=== PATIENT | female | born 1955 | race Caucasian/White ===

== ENCOUNTER → 2018-09-01 | Outpatient (CLI) | payer MEDICARE ==
--- NOTE | 2018-09-01 15:25 | NM ---
EXAMINATION TYPE: NM bone scan whole body DATE OF EXAM: 09/01/2018 COMPARISON: Lumbar spine radiographs dated 08/30/2018 HISTORY: Back pain Delayed whole-body scanning was performed following the injection of 23.8 mCi Tc 99m MDP. Images acq uired 3 hours post injection. FINDINGS: There is focal abnormal radiotracer uptake within the L1-L4 vertebral bodies. On the radiographs of compression deformities of the L1-L3 vertebral bodies. There is also abnormal radiotracer up take within the left eighth rib posteriorly, near the left 12th rib posteriorly, and within the 10th right rib laterally. Degenerative uptake is seen symmetrically within the shoulders, sacroiliac joint s, hips, knees, ankles and elbows. Scoliosis is noted. IMPRESSION: 1. Abnormal radiotracer uptake is seen from L1 through L4. L1-L3 compression deformities were seen on the radiographs of 08/30/2018 and acute compression deformities likely account for this finding. MRI could evaluate for osteopenic versus pathologic compression deformities. 2. Abnormal radiotracer uptake within the ribs bilaterally should be further evaluated. Rib series co uld initially be performed with chest CT if no corresponding lesions or fractures are seen.
== END ==
LOC: RADNMMAIN 11:08
PROVIDERS: ATTEND Physical Medicine & Rehabilitation
DX: R93.89 Abnormal findings on diagnostic imaging of other specified body structures (principal)
CPT/HCPCS: 78306; A9503

== ENCOUNTER 2019-05-12 17:49 | Inpatient (IN) | payer MEDICARE ==
[2019-05-12] MEDS ORDERED: VANCOMYCIN IV PER PHARMACY 1 EACH MISC MISCELLANE PRN (22:53)
[2019-05-12] MEDS ORDERED: VANCOMYCIN 1,000 MG in SODIUM CHLORIDE 0.9% 250 ML IVPB STA (22:56)
[2019-05-12] MEDS: SODIUM CHLORIDE 0.9% 1,000 ML IV SCH (23:31)
[2019-05-12] MEDS: HYDROmorphone 1 MG/ML 1 ML SYRINGE IVP PRN (23:34)
[2019-05-13 00:14] LABS: Calcium 8.3 mg/dL (8.4-10.2)
[2019-05-13] MEDS: traZODone HCL 100 MG TAB PO SCH ×2 (00:18→21:36)
[2019-05-13] MEDS: PANTOPRAZOLE 40 MG/10 ML VIAL IVP SCH ×2 (00:18→07:05)
[2019-05-13] MEDS: HYDROmorphone 1 MG/ML 1 ML SYRINGE IVP PRN ×4 (04:23→15:19)
[2019-05-13] MEDS: KETOROLAC 30 MG/ML 1 ML VIAL IVP PRN ×2 (06:25→20:13)
[2019-05-13 06:57] LABS: Calcium 8.2 mg/dL (8.4-10.2); Total Bilirubin 0.5 mg/dL (0.2-1.3); Total Protein 5.6 g/dL (6.3-8.2)
[2019-05-13] MEDS ORDERED: HYDROcodone/APAP 5-325MG 1 EACH TAB PO PRN (11:28)
[2019-05-13] MEDS ORDERED: NALOXONE 0.4 MG/ML 10 ML VIAL IVP PRN (11:29)
[2019-05-13 11:36] LABS: HCT 33.8 % (34.0-46.0); HGB 10.5 gm/dL (11.4-16.0); Hypochromasia Marked; MCH 29.7 pg (25.0-35.0); MCHC 31.1 g/dL (31.0-37.0); MCV 95.7 fL (80.0-100.0); Mean Platelet Volume 7.3; Platelet Count 183 k/uL (150-450); RBC 3.53 m/uL (3.80-5.40); RDW 15.5 % (11.5-15.5)
[2019-05-13] MEDS ORDERED: NALOXONE 0.4 MG/ML 1 ML VIAL IV PRN (11:36)
[2019-05-13] MEDS: HYDROcodone/APAP 5-325MG 1 EACH TAB PO PRN ×2 (11:58→17:35)
--- NOTE | 2019-05-13 11:58 | P.CNOR ---
History of Present Illness - [facility] Consult date: 05/13/19 Consult reason: other (Cellulitis right hand) History of present illness: Patient is a pleasant 63-year-old female seen at bedside this morning consultation for right hand pain and cellulitis. She states she had hand surgery 30 years ago approximately relating to her juvenile rheumatoid arthritis. She states that approximately a week ago she noticed piece of hardware sticking out of her right hand. She states she continued washing dishes and did not seek care until yesterday due to the inability to get tra nsportation. 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 She states she's had progressive pain at the dorsum of the right hand. She is transferred from [facility] where she presented yesterday. X- rays were done there but they're not available to me today. She has been on IV vancomycin. She is currently denying fever or chills. She denies numbness or tingling. She has no other complaints. Review of Systems All systems: negative Constitutional: Denies chills, Denies fever Eyes: denies blurred vision, denies pain Ears, nose, mouth and throat: Denies headache, Denies sore throat Cardiovascular: Denies chest pain, Denies shortness of breath Respiratory: Denies cough Gastrointestinal: Denies abdominal pain, Denies diarrhea, Denies nausea, Denies vomiting Genitourinary: Denies dysuria, Denies hematuria Musculoskeletal: Denies myalgias Integumentary: Denies pruritus, Denies rash Neurological: Denies numbness, Denies weakness Psychiatric: Denies anxiety, Denies depression Endocrine: Denies fatigue, Denies weight change Past Medical History Past Medical History: Rheumatoid Arthritis (RA) Additional Past Medical History / Comment(s): blind, juvenile RA History of Any Multi-Drug Resistant Organisms: None Reported Additional Past Surgical History / Comment(s): mulitple joint surgeries, eye surgery Past Anesthesia/Blood Transfusion Reactions: No Reported Reaction Past Psychological History: Anxiety, Depression Smoking Status: Former smoker Past Drug Use History: Marijuana - Past Family History Father Family Medical History: Myocardial Infarction ([place]) Additional Family Medical History / Comment(s): ETOH Mother Family Medical History: No Reported History Medications and Allergies Home Medications Medication Instructions Recorded Confirmed Type Clopidogrel [Plavix] 75 mg PO DAILY 05/12/19 05/12/19 History Estradiol [Estrace] 1 mg PO DAILY 05/12/19 05/12/19 History HYDROcodone/APAP 10-325MG [[place] 1 tab PO BID 05/12/19 05/12/19 History 10-325] Omeprazole [PriLOSEC] 20 mg PO AC-BID 05/12/19 05/12/19 History Potassium Chloride [Klor-Con 10] 10 meq PO DAILY 05/12/19 05/12/19 History Sodium Chloride 5% Ophth Oint 1 applic BOTH EYES HS 05/12/19 05/12/19 History [Carlos 128] fentaNYL 100MCG/HR PATCH 1 patch TRANSDERM Q72H 05/12/19 05/12/19 History [Duragesic 100MCG/HR] predniSONE 17.5 mg PO DAILY 05/12/19 05/12/19 History traZODone HCL 100 mg PO DAILY 05/12/19 05/12/19 History traZODone HCL [Desyrel] 200 mg PO HS 05/12/19 05/12/19 History Allergies Allergy/AdvReac Type Severity Reaction Status Date / Time ibuprofen AdvReac Nausea & Verified 05/12/19 21:55 Vomiting Physical Examination Inspection of the right hand shows changes consistent with chronic rheumatoid arthritis. There is swelling about the dorsum of the right hand including cellulitis. There is no obvious fluid pocket or drainage. There is no bleeding. Dorsal aspect of the hand is mildly warm to touch. There is diffuse edema. it is tender to palpation throughout the dorsum of the right hand. No proximal streaking. Motor and sensation is grossly intact throughout the right hand and upper extremity. 2+ radial pulses present. No pain with passive range of motion of the right elbow. Results - Labs Labs: Abnormal Lab Results - Last 24 Hours (Table) 05/12/19 05/13/19 05/13/19 Range/Units 23:37 06:17 10:56 RBC 3.53 L (3.80-5.40) m/uL Hgb 10.5 L (11.4-16.0) gm/dL Hct 33.8 L (34.0-46.0) % Chloride 109 H (98-107) mmol/L BUN 26 H 21 H (7-17) mg/dL Glucose 179 H (74-99) mg/dL Calcium 8.3 L 8.2 L (8.4-10.2) mg/dL Total Protein 5.6 L (6.3-8.2) g/dL Albumin 3.0 L (3.5-5.0) g/dL H & H 05/13/19 Range/Units 10:56 Hgb 10.5 L (11.4-16.0) gm/dL Hct 33.8 L (34.0-46.0) % Result Diagrams: 05/13/19 10:56 05/13/19 06:17 Assessment and Plan (1) Cellulitis of right hand Narrative/Plan: We will order new x-rays of the right hand to further assess the hardware in place and the position of it, as well as for fractures and further signs of infection. Recommended continued elevation along with twice a day warm soapy soaks.we will continue to monitor and make further recommendations pending her findings with her x-rays and her clinical course. Continue IV antibiotics and medical management per primary team. Current Visit: Yes Status: Acute Priority: Medium Code(s): L03.113 - CELLULITIS OF RIGHT UPPER LIMB SNOMED Code(s): 56346591 Time with Patient: Less than 30
--- NOTE | 2019-05-13 11:59 | XR ---
EXAMINATION TYPE: XR hand complete RT , 3 VIEWS DATE OF EXAM ORDERED: 05/13/2019 HISTORY: cellulitis, s/p hand surgery, Hx of JRA. COMPARISON: None. FINDINGS: The hand is grossly deformed with flexion contractures at all digits. There is been a prev ious K wire pinning of the thumb. There is diffuse osteopenia. There is evidence of partial fusion ab out the wrist. IMPRESSION: 1. DEFORMED HAND. 2. POSTSURGICAL CHANGE. 3. THE BONES ARE OVERLAPPED TO SUCH EXTENT THAT IT WOULD BE IMPOSSIBLE TO EXCLUDE OSTEOMYELITIS.
[2019-05-13] MEDS: VANCOMYCIN 750 MG in SODIUM CHLORIDE 0.9% 250 ML IVPB SCH ×2 (12:01→23:59)
[2019-05-13] MEDS: SODIUM CHLORIDE 0.9% 1,000 ML IV SCH ×2 (12:06→23:59)
--- NOTE | 2019-05-13 17:51 | CONS ---
CONSULTATION DATE OF SERVICE: 05/13/2019. REASON FOR CONSULTATION: Right hand cellulitis and abscess. HISTORY OF PRESENT ILLNESS: The patient is a 63 -year-old female, who apparently did develop pain, swelling, redness to her right hand dorsum area while she was initially noticed about a week ago when she noticed that when she was doing her dishes, the patient noticed a hardware sticking out of her hand with a previous history of fusion surgery. The hardware was subsequently removed. The patient started having more swelling and redness and pain for which the patient was initially admitted at [facility] yesterday. I did evaluate the patient at that point. She was having pain almost 10/10 in severity, associated with swelling, redness and purulent drainage with need for hand surgeon. The patient has been transferred to [facility] to be evaluated by hand surgery and I and D. Infectious Disease was consulted. Consulted for continuous followup for antibiotic therapy. As of today, the patient is afebrile. The patient's pain and swelling to the right hand have decreased intensity compared to yesterday with intensity almost about 2 to 3/10 compared to 10/10 initially. No further drainage. Swelling and redness has improved as well. Denies any chest pain, shortness of breath or cough. No nausea, vomiting, abdominal pain, no diarrhea. REVIEW OF SYSTEMS: Positive points mentioned in HPI. Other review of systems negative. PAST MEDICAL HISTORY: Past medical and surgical history reviewed; no change. SOCIAL HISTORY: Reviewed and no change from yesterday. ALLERGIES: TO IBUPROFEN. MEDICATIONS: Include the patient is currently on: [place], Duragesic patch, heparin, Dilaudid, Toradol, vancomycin pharmacy to dose currently getting 750 q.12 hours. PHYSICAL EXAMINATION: Blood pressure is 129/83 with a pulse of 81, temperature 98. She is 95% on room air. General description is a middle-aged female lying in bed in no distress. No tachypnea or accessory muscle for respiration use. HEENT: Examination shows no pallor or scleral icterus. Oral mucosa is moist with no significant erythema or thrush. NECK: Trachea central. No thyromegaly. LUNGS unlabored breathing. Clear to auscultation anteriorly. No wheeze or crackles. HEART S1, S2. Regular rate and rhythm. ABDOMEN: Soft, no tenderness. Right hand swelling and redness has decreased. No further drainage was noticed and no diarrhea. Neurologically the patient is awake, alert, and oriented times three. Mood and affect normal. LABS: Hemoglobin is 10.5, white count 5.0, BUN of 92, creatinine 0.9. Cultures done at [facility] were reviewed, so far pending. Blood culture has been negative. DIAGNOSTIC IMPRESSION AND PLAN: Patient with right hand abscess, cellulitis with the infected hardware, part if ut that has fallen off with the x-ray did show extensive changes, but no evidence of any abscess, likely concern for underlying osteomyelitis, likely from a gram-positive skin lacy. In view of overall improvement of cellulitis with vancomycin. PLAN: 1. Vancomycin pharmacy to dose target of 15, while watching clinical course closely, and vancomycin trough closely. 2. Await surgical exploration and removal of infected hardware. 3. We will follow up on clinical condition and culture to further adjust medication if needed. The patient likely will need PICC line for IV antibiotic on discharge. This will be discussed further with the case work aide. Family at the bedside. Their questions and concerns were answered. MMODL / IJN: [id number] /
[2019-05-13] MEDS: HEPARIN SODIUM,PORCINE 5,000 UNIT/ML 1 ML VIAL SQ SCH (21:36)
[2019-05-13] MEDS ORDERED: VANCOMYCIN 750 MG in SODIUM CHLORIDE 0.9% 250 ML IVPB SCH (23:00)
--- NOTE | 2019-05-14 00:47 | P.HPIM ---
History of Present Illness H&P Date: 05/13/19 Chief Complaint: rt Wrist Swelling and pain Meg Sidhu a 63 y.o.femaleWith a known history of juvenile rheumatoid arthritis, legally blind,COPD and other medical problems presents to ER with complaints of right hand swelling, pain and redness worsening for the past 2-3 days. Patient says that she had injury to the right wrist about 2 days ago while she was washing workup.since that she noticed Pieces of hardware protruding through the right wrist.yesterday she noticed that he started to get loose and fell out of her head. Patient has been having purulent drainage from the wound site. Denied any complaints of fever or chills. No complaints of Chest pain or shortness of breath. Patient is otherwise ambulatory at home. Patient had right wrist surgery about [address] Munson WBC 8.60, hemoglobin 11.4, platelets 209, sodium 145, potassium 4.6, BUN 23 and creatinine 0.9on October 22 0.8 X-ray of the right wrist. NO FRACTURE SEEN. EXTENSIVE CHANGES CONSISTENT WITH CHRONIC RHEUMATOID ARTHRITIS. NO EVIDENCE OF OSTEOMYELITIS. Review of Systems CONSTITUTIONAL:no fever no chills. No loss of appetite. EYES: negative. EARS, NOSE, MOUTH, THROAT and FACE: negative. RESPIRATORY: Negative. CARDIOVASCULAR: Negative. GASTROINTESTINAL: Negative. GENITOURINARY: Negative. INTEGUMENT/BREAST: Negative. HEMATOLOGIC/LYMPHATIC: Negative. MUSCULOSKELETAL:right wrist swelling and redness and pain. NEUROLOGICAL: Negative. BEHAVIORAL/PSYCH: Negative. ENDOCRINE: Negative . Past Medical History Past Medical History: Rheumatoid Arthritis (RA) Additional Past Medical History / Comment(s): blind, juvenile RA History of Any Multi-Drug Resistant Organisms: None Reported Additional Past Surgical History / Comment(s): mulitple joint surgeries, eye surgery Past Anesthesia/Blood Transfusion Reactions: No Reported Reaction Past Psychological History: Anxiety, Depression Smoking Status: Former smoker Past Drug Use History: Marijuana - Past Family History Father Family Medical History: Myocardial Infarction ([place]) Additional Family Medical History / Comment(s): ETOH Mother Family Medical History: No Reported History Medications and Allergies Home Medications Medication Instructions Recorded Confirmed Type Clopidogrel [Plavix] 75 mg PO DAILY 05/12/19 05/12/19 History Estradiol [Estrace] 1 mg PO DAILY 05/12/19 05/12/19 History HYDROcodone/APAP 10-325MG [[place] 1 tab PO BID 05/12/19 05/12/19 History 10-325] Omeprazole [PriLOSEC] 20 mg PO AC-BID 05/12/19 05/12/19 History Potassium Chloride [Klor-Con 10] 10 meq PO DAILY 05/12/19 05/12/19 History Sodium Chloride 5% Ophth Oint 1 applic BOTH EYES HS 05/12/19 05/12/19 History [Carlos 128] fentaNYL 100MCG/HR PATCH 1 patch TRANSDERM Q72H 05/12/19 05/12/19 History [Duragesic 100MCG/HR] predniSONE 17.5 mg PO DAILY 05/12/19 05/12/19 History traZODone HCL 100 mg PO DAILY 05/12/19 05/12/19 History traZODone HCL [Desyrel] 200 mg PO HS 05/12/19 05/12/19 History Allergies Allergy/AdvReac Type Severity Reaction Status Date / Time ibuprofen AdvReac Nausea & Verified 05/12/19 21:55 Vomiting Physical Exam Vitals: Vital Signs Temp Pulse Resp BP Pulse Ox 05/13/19 07:28 99.3 F 75 18 128/78 99 05/13/19 07:00 18 05/13/19 04:00 98.6 F 102 H 16 143/87 93 L 05/12/19 21:58 98.4 F 105 H 16 135/84 94 L Intake and Output 05/12/19 05/13/19 05/13/19 22:59 06:59 14:59 Intake Total 290 Balance 290 Intake: Oral 290 Other: Voiding Method Bedpan # Voids 1 1 Weight 46.7 kg General Appearance: Alert, cooperative, no distress, appears stated age HEENT: PERRL, conjunctiva/corneas clear,legally blind. Neck: Supple, noJVD, no thyromegaly. Chest: Lungs are clear to auscultation bilaterally, respirations unlabored, no tenderness or deformity, Heart: Regular rate and rhythm, S1, S2 normal, no murmur, rub or gallop, pulses are present and symmetric, no S3 of S4. Abdomen: Soft, nontender, bowel sounds active all 4 quadrants, no masses, no o rganomegaly. Extremities:patient does have rheumatoid arthritic changes of bilateral upper and lower extremities., peripheral pulses 2+ bilaterally. right wrist is swollen redness and tender to palpation with purulent drainage from the hardware exit site. Lymph nodes: Cervical, supraclavicular, and axillary nodes normal. Neurologic: Normal, awake and oriented x 3, no focal neuro deficit noted. Psychiatric: Normal with appropriate mood and affect. Skin: Color and texture normal, no rash or lesions. Results CBC & Chem 7: 05/13/19 06:17 Labs: Abnormal Lab Results - Last 24 Hours (Table) 05/12/19 05/13/19 Range/Units 23:37 06:17 Chloride 109 H (98-107) mmol/L BUN 26 H 21 H (7-17) mg/dL Glucose 179 H (74-99) mg/dL Calcium 8.3 L 8.2 L (8.4-10.2) mg/dL Total Protein 5.6 L (6.3-8.2) g/dL Albumin 3.0 L (3.5-5.0) g/dL Thrombosis Risk Factor Assmnt - DVT/VTE Prophylaxis DVT/VTE Prophylaxis: Pharmacologic Prophylaxis ordered - Choose All That Apply Any of the Below Risk Factors Present?: Yes Each Factor Represents 1 point: Obesity (BMI >25) Other Risk Factors: Yes Each Risk Factor Represents 2 Points: Age 61-74 years Other congenital or acquired thrombophilia - If yes, enter type in comment: No Thrombosis Risk Factor Assessment Total Risk Factor Score: 3 Thrombosis Risk Factor Assessment Level: Moderate Risk Assessment and Plan Assessment: Right wrist cellulitis and possible abscess with purulent drainage and also breaking of hardware from previous surgery. Sepsis secondary to above. Patient was tachycardic and febrile. T-max 101.3 Juvenile rheumatoid arthritis with significant arthritic changes hands and feet. Legal blindness COPD not in exacerbation Mild protein calorie malnutrition Normocytic anemia. Rule out iron deficiency and B12 deficiency DVT prophylaxis with heparin subcu PLAN: Patient will be continued on antibiotics in the form of vancomycin. Follow-up wound culture report. Orthopedic surgery and ID was consulted. Patient needs to be seen by hand surgery/plastic surgery for possible incision and drainage. Continue with pain management. Prognosis guarded at this time. Further recommendations based on the clinical course. Time takengreater than 45 minutes. Discussed with the family at bedside in detail. Time with Patient: Greater than 30
[2019-05-14] MEDS: HYDROcodone/APAP 5-325MG 1 EACH TAB PO PRN ×5 (02:49→21:11)
[2019-05-14] MEDS: KETOROLAC 30 MG/ML 1 ML VIAL IVP PRN (04:50)
[2019-05-14] MEDS: SODIUM CHLORIDE 0.9% 1,000 ML IV SCH ×2 (06:15→18:51)
[2019-05-14 07:26] LABS: Basophils % (A) 0 %; Eosinophils # (A) 0.1 k/uL (0-0.7); Eosinophils % (A) 2 %; HCT 32.6 % (34.0-46.0); HGB 10.2 gm/dL (11.4-16.0); Hypochromasia Marked; Lymphocytes # (A) 0.8 k/uL (1.0-4.8); Lymphocytes % (A) 20 %; MCH 29.8 pg (25.0-35.0); MCHC 31.3 g/dL (31.0-37.0); MCV 95.2 fL (80.0-100.0); Mean Platelet Volume 7.5; Monocytes # (A) 0.3 k/uL (0-1.0); Monocytes % (A) 6 %; Neutrophils # (A) 2.8 k/uL (1.3-7.7); Neutrophils % (A) 68 %; Platelet Count 179 k/uL (150-450); RBC 3.42 m/uL (3.80-5.40); RDW 15.7 % (11.5-15.5); WBC 4.1 k/uL (3.8-10.6)
[2019-05-14 07:35] LABS: African American GFR (CKD) >90 (>60 ml/min/1.73 sqM); Anion Gap 3 mmol/L; Blood Urea Nitrogen 14 mg/dL (7-17); Calcium 7.6 mg/dL (8.4-10.2); Carbon Dioxide 27 mmol/L (22-30); Chloride 112 mmol/L (98-107); Glucose 74 mg/dL (74-99); Non-African American GFR(CKD) 89 (>60 ml/min/1.73 sqM); Potassium 4.1 mmol/L (3.5-5.1); Sodium 142 mmol/L (137-145)
[2019-05-14] MEDS: PANTOPRAZOLE 40 MG/10 ML VIAL IVP SCH (07:59)
[2019-05-14] MEDS: HEPARIN SODIUM,PORCINE 5,000 UNIT/ML 1 ML VIAL SQ SCH ×2 (08:05→19:57)
[2019-05-14] MEDS: VANCOMYCIN 750 MG in SODIUM CHLORIDE 0.9% 250 ML IVPB SCH (12:15)
--- NOTE | 2019-05-14 15:06 | P.PN ---
Subjective Progress Note Date: 05/14/19 Principal diagnosis: Right hand cellulitis Patient is seen at bedside today. We are following for her right hand swelling, cellulitis, infection s/p hand surgery many years ago. She has been on IV antibiotics, elevation and doing soaks. XRays of the hand were ordered as well. She feels it is improved today with the swelling and pain. She has no fever, chills, numbness or tingling. Objective - Vital Signs Vital signs: Vital Signs Temp 97.6 F 05/14/19 07:30 Pulse 79 05/14/19 07:30 Resp 17 05/14/19 07:30 BP 155/86 05/14/19 07:30 Pulse Ox 96 05/14/19 07:30 Intake & Output 05/13/19 05/14/19 05/14/19 18:59 06:59 18:59 Intake Total 540 1400 1200 Output Total 400 Balance 140 1400 1200 Intake: Intake, IV Titration 1250 800 Amount Sodium Chloride 0.9% 1, 1000 800 000 ml @ 100 mls/hr IV . Q10H RENÉ Rx#:[id number] Vancomycin 750 mg In 250 Sodium Chloride 0.9% 250 ml @ 125 mls/hr IVPB Q12H RENÉ Rx#:[id number] Oral 540 150 400 Output: Urine 400 Other: Voiding Method Bedpan Bedpan Diaper Diaper # Voids 1 1 2 # Bowel Movements 1 1 - Exam Inspection of the right hand shows improved erythema and edema at the dorsum of the hand. It is mildly tender. It is not hot to touch. No focal abcess or fluid collection appreciated. No open wounds. NVI. - Constitutional General appearance: Present: no acute distress - Labs CBC & Chem 7: 05/14/19 07:00 05/14/19 07:00 Labs: Abnormal Lab Results - Last 24 Hours (Table) 05/14/19 05/14/19 Range/Units 07:00 07:00 RBC 3.42 L (3.80-5.40) m/uL Hgb 10.2 L (11.4-16.0) gm/dL Hct 32.6 L (34.0-46.0) % RDW 15.7 H (11.5-15.5) % Lymphocytes # 0.8 L (1.0-4.8) k/uL Chloride 112 H (98-107) mmol/L Calcium 7.6 L (8.4-10.2) mg/dL - Imaging and Cardiology XRay of right hand show chronic rheumatoid changes diffusely. There are two pins in the right thumb but no other hardware seen at the hand or elsewhere. The fracture or acute process seen Assessment and Plan (1) Cellulitis of right hand Narrative/Plan: She is improved today clinically overall. Recommended continued elevation along with twice a day warm soapy soaks and IV antibiotocs. We will continue to m onitor and make further recommendations pending her clinical course. Current Visit: Yes Status: Acute Priority: Medium Code(s): L03.113 - CELLULITIS OF RIGHT UPPER LIMB SNOMED Code(s): 53930372 Time with Patient: Less than 30
--- NOTE | 2019-05-14 17:13 | PN ---
PROGRESS NOTE DATE OF SERVICE: 05/14/2019 REASON FOR FOLLOWUP: Right hand abscess, cellulitis and concern for underlying infected hardware. INTERVAL HISTORY: The patient is currently afebrile. The patient has been breathing comfortably. The patient denies having any chest pain or any cough. No nausea. No vomiting. No abdominal pain. Pain and swelling of the right hand has decreased and no drainage. PHYSICAL EXAMINATION: On examination, her blood pressure is 124/80 with a pulse of 79, temperature 98.4. She is 97% on room air. General description is a middle-aged female up in the bed in no distress. RESPIRATORY SYSTEM: Unlabored breathing. Clear to auscultation anteriorly. HEART: S1, S2. Regular rate and rhythm. ABDOMEN: Soft. No tenderness. Right hand swelling and redness slightly decreased. LABS: Hemoglobin is 10.2, white count 4.1 with a BUN of 14, creatinine 0.73. DIAGNOSTIC IMPRESSION AND PLAN: Patient with right hand abscess and cellulitis with concern for underlying infected hardware. Cultures were reviewed at [facility], which grew MSSA. Antibiotic will be switched over to cefazolin 2 grams q.8 hours. Await orthopedic recommendation regarding removal of any infected hardware. Continue with supportive care. MMODL / IJN: [id number] /
[2019-05-14] MEDS: HYDROmorphone 1 MG/ML 1 ML SYRINGE IVP PRN (19:51)
[2019-05-14] MEDS: traZODone HCL 100 MG TAB PO SCH (21:11)
--- NOTE | 2019-05-14 22:25 | P.PN ---
Subjective Progress Note Date: 05/14/19 Principal diagnosis: right wrist cellulitis and broken hardware. Meg Sidhu a 63 y.o.femaleWith a known history of juvenile rheumatoid arthritis, legally blind,COPD and other medical problems presents to ER with complaints of right hand swelling, pain and redness worsening for the past 2-3 days. Patient says that she had injury to the right wrist about 2 days ago w hile she was washing workup.since that she noticed Pieces of hardware protruding through the right wrist.yesterday she noticed that he started to get loose and fell out of her head. Patient has been having purulent drainage from the wound site. Denied any complaints of fever or chills. No complaints of Chest pain or shortness of breath. Patient is otherwise ambulatory at home. Patient had right wrist surgery about [address] Munson WBC 8.60, hemoglobin 11.4, platelets 209, sodium 145, potassium 4.6, BUN 23 and creatinine 0.9on October 22 0.8 X-ray of the right wrist. NO FRACTURE SEEN. EXTENSIVE CHANGES CONSISTENT WITH CHRONIC RHEUMATOID ARTHRITIS. NO EVIDENCE OF OSTEOMYELITIS. 05/14/2019 patient is afebrile. Right wrist swelling and redness i improving. Currently being continued on IV antibiotics in the form ofvancomycin. X-ray of the handshowed over lapped bones. OM cannot be excluded.Still complaining of pain but this improvement in pain compared to admission. ID and orthopedic surgery is following. current medications reviewed Objective - Vital Signs Vital signs: Vital Signs Temp 98.4 F 05/14/19 14:35 Pulse 79 05/14/19 16:00 Resp 18 05/14/19 16:00 BP 124/80 05/14/19 14:35 Pulse Ox 97 05/14/19 14:35 Intake & Output 05/13/19 05/14/19 05/14/19 18:59 06:59 18:59 Intake Total 540 1400 1200 Output Total 400 Balance 140 1400 1200 Intake: Intake, IV Titration 1250 800 Amount Sodium Chloride 0.9% 1, 1000 800 000 ml @ 100 mls/hr IV . Q10H [facility] Rx#:[id number] Vancomycin 750 mg In 250 Sodium Chloride 0.9% 250 ml @ 125 mls/hr IVPB Q12H [facility] Rx#:[id number] Oral 540 150 400 Output: Urine 400 Other: Voiding Method Bedpan Bedpan Diaper Diaper # Voids 1 1 2 # Bowel Movements 1 1 - Exam PHYSICAL EXAMINATION: Patient is lying in the bed comfortably, no acute distress, awake alert and oriented.. HEENT: Normocephalic. Neck is supple. Pupils reactive. Nostrils clear. Oral cavity is moist. Ears reveal no drainage. Neck reveals no JVD, carotid bruits, or thyromegaly. CHEST EXAMINATION: Trachea is central. Symmetrical expansion. Lung garcia clear to auscultation and percussion. CARDIAC: Normal S1, S2 with no gallops. No murmurs ABDOMEN: Soft. Bowel sounds normal. No organomegaly. No abdominal bruits. Extremities: reveal no edema. No clubbing or cyanosis Neurologically awake, alert, oriented x3 with well-coordinated movements. No focal deficits noted Skin: No rash or skin lesions. Psychiatric: Coperative. Nonsuicidal Musculoskeletal: does have significantly deformed joints of the bilateral upper lower extremities due to rheumatoid arthritis right wrist swelling and redness improving. No drainage noted. - Labs CBC & Chem 7: 05/14/19 07:00 05/14/19 07:00 Labs: Abnormal Lab Results - Last 24 Hours (Table) 05/14/19 05/14/19 Range/Units 07:00 07:00 RBC 3.42 L (3.80-5.40) m/uL Hgb 10.2 L (11.4-16.0) gm/dL Hct 32.6 L (34.0-46.0) % RDW 15.7 H (11.5-15.5) % Lymphocytes # 0.8 L (1.0-4.8) k/uL Chloride 112 H (98-107) mmol/L Calcium 7.6 L (8.4-10.2) mg/dL Assessment and Plan Assessment: Right wrist cellulitis and possible abscess with purulent drainage and also breaking of hardware from previous surgery. Sepsis secondary to above. Patient was tachycardic and febrile. T-max 101.3 Juvenile rheumatoid arthritis with significant arthritic changes hands and feet. Legal blindness COPD not in exacerbation Mild protein calorie malnutrition Normocytic anemia. Rule out iron deficiency and B12 deficiency DVT prophylaxis with heparin subcu PLAN: Patient will be continued on antibiotics in the form of vancomycin. Follow-up wound culture report. Orthopedic surgery and ID is following. Continue with pain management. Prognosis guarded at this time. Further recommendations based on the clinical course. Time takengreater than 35 minutes. Discussed with the family at bedside in detail. Time with Patient: Greater than 30
[2019-05-14] MEDS ORDERED: VANCOMYCIN TROUGH DUE 1 EACH MISC MISCELLANE ONE (23:00)
[2019-05-15] MEDS: HYDROmorphone 1 MG/ML 1 ML SYRINGE IVP PRN ×8 (00:50→20:56)
[2019-05-15] MEDS: SODIUM CHLORIDE 0.9% 1,000 ML IV SCH ×3 (00:51→23:45)
[2019-05-15] MEDS: HEPARIN SODIUM,PORCINE 5,000 UNIT/ML 1 ML VIAL SQ SCH ×3 (07:17→21:05)
[2019-05-15] MEDS: PANTOPRAZOLE 40 MG/10 ML VIAL IVP SCH (07:22)
[2019-05-15] MEDS: HYDROcodone/APAP 5-325MG 1 EACH TAB PO PRN (07:23)
[2019-05-15 08:05] LABS: African American GFR (CKD) >90 (>60 ml/min/1.73 sqM); Non-African American GFR(CKD) 79 (>60 ml/min/1.73 sqM)
[2019-05-15] MEDS ORDERED: LIDOCAINE 1%-EPI 1:100,000 20 ML VIAL SQ STA (09:55)
[2019-05-15] MEDS ORDERED: HYDROcodone/APAP 7.5-325MG 1 EACH TAB PO PRN (10:01)
[2019-05-15] MEDS ORDERED: LIDOCAINE 1% INJ 10MG/ML (20 ML MDV) SQ ONE (10:25)
--- NOTE | 2019-05-15 10:52 | P.PN ---
Subjective Progress Note Date: 05/15/19 Principal diagnosis: Right hand cellulitis Patient is seen at bedside today. We are following for her right hand swelling, cellulitis, infection s/p hand surgery many years ago. She has been on IV antibiotics, elevation and doing soaks. XRays showed K wire-type pins in the thumb only. There is no other hardware present in the metacarpals or dorsum of the hand.. She feels it has continued to improve a little with the swelling and pain. She has no fever, chills, numbness or tingling. Objective - Vital Signs Vital signs: Vital Signs Temp 98.7 F 05/15/19 07:20 Pulse 89 05/15/19 07:20 Resp 17 05/15/19 07:20 BP 162/85 05/15/19 08:47 Pulse Ox 97 05/15/19 07:20 Intake & Output 05/14/19 05/15/19 05/15/19 18:59 06:59 18:59 Intake Total 1200 240 Balance 1200 240 Intake: Intake, IV Titration 800 Amount Sodium Chloride 0.9% 1, 800 000 ml @ 100 mls/hr IV . Q10H [facility] Rx#:[id number] Oral 400 240 Other: Voiding Method Bedpan Diaper # Voids 2 1 1 # Bowel Movements 1 - Exam Inspection of the right hand shows improved erythema and edema at the dorsum of the hand. It is mildly tender. It is not hot to touch. A small area of what appears to be a collection of possible fluid or abscess is more evident today at the area of the dorsum of the hand at the third metacarpal head where there is also a healing puncture type wound. It is minimally fluctuant. No other areas of fluid collection or abscess seen. There is no proximal streaking. 2+ radial pulses present and less than 2 second capillary refill is present. Motor and sensation is grossly intact throughout the right upper extremity and hand. She has chronic rheumatoid deformity of the hand and digits. - Constitutional General appearance: Present: no acute distress - Labs CBC & Chem 7: 05/14/19 07:00 05/15/19 07:03 Assessment and Plan (1) Cellulitis of right hand Narrative/Plan: After informed consent was given I performed a small bedside incision and drainage at the dorsum of the right hand.. The dorsal hand near the third metacarpal head was locally anesthetized using 1% plain lidocaine. A small longitudinal incision was made at the small area of collection. Minimal serous type fluid was expressed. There was no gross purulence expressed. There was minimal bleeding. She tolerated procedure well without complication. Patient was then placed in warm soapy water to soak for 15 minutes. She is to repeat twice a day. A light gauze dressing to be applied to the wound daily. She continues to improve clinically overall. She is afebrile and her white blood cell count is normal. Recommended continued elevation along with twice a day warm soapy soaks and IV antibiotocs. We will continue to monitor and make further recommendations pending her clinical course. Current Visit: Yes Status: Acute Priority: Medium Code(s): L03.113 - CELLULITIS OF RIGHT UPPER LIMB SNOMED Code(s): 09534401 Time with Patient: Less than 30
[2019-05-15] MEDS: HYDROcodone/APAP 7.5-325MG 1 EACH TAB PO PRN ×2 (12:58→18:13)
--- NOTE | 2019-05-15 15:59 | PN ---
PROGRESS NOTE DATE OF SERVICE: 05/15/2019 REASON FOR FOLLOWUP: Right hand abscess and cellulitis. INTERVAL HISTORY: The patient is currently afebrile. The patient has been breathing comfortably. Pain to the right hand is currently controlled. The patient has been evaluated by Orthopedics with an attempted I&D of the right hand at the bedside. No significant purulence. The patient denies having any chest pain or cough. No abdominal pain. No diarrhea. PHYSICAL EXAMINATION: Blood pressure is 162/85 with a pulse of 89, temperature 98.7. She is 97% on room air. General description is a middle-aged female up in the bed in no distress. RESPIRATORY SYSTEM: Unlabored breathing. Clear to auscultation anteriorly. HEART: S1, S2. Regular rate and rhythm. ABDOMEN: Soft. No tenderness. Right hand swelling and redness slightly decreased. No drainage. LABS: Creatinine 0.81. Blood culture obtained has been negative so far. DIAGNOSTIC IMPRESSION AND PLAN: Patient with a right hand abscess and concern for infected hardware in this patient with culture positive for MSSA at the [facility]. Blood culture positive as well. Blood culture obtained here is currently pending. Patient to continue with cefazolin 2 grams q.8 hours. Once the blood culture is negative, she will get a PICC line, as she will need at least 4 to 6 weeks of IV cefazolin. Continue with supportive care. MMBLAINEL / MAUREENN: [id number] /
--- NOTE | 2019-05-15 17:37 | P.PN ---
Subjective Progress Note Date: 05/15/19 Principal diagnosis: right wrist cellulitis and broken hardware. Objective - Vital Signs Vital signs: Vital Signs Temp 98.3 F 05/15/19 15:35 Pulse 80 05/15/19 15:35 Resp 16 05/15/19 15:35 BP 153/87 05/15/19 15:35 Pulse Ox 94 L 05/15/19 15:35 Intake & Output 05/14/19 05/15/19 05/15/19 18:59 06:59 18:59 Intake Total 1200 240 Balance 1200 240 Intake: Intake, IV Titration 800 Amount Sodium Chloride 0.9% 1, 800 000 ml @ 100 mls/hr IV . Q10H [facility] Rx#:[id number] Oral 400 240 Other: Voiding Method Bedpan Diaper # Voids 2 1 1 # Bowel Movements 1 1 - Exam HEENT: Normocephalic. Neck is supple. Pupils reactive. Nostrils clear. Oral cavity is moist. Ears reveal no drainage. Neck reveals no JVD, carotid bruits, or thyromegaly. CHEST EXAMINATION: Trachea is central. Symmetrical expansion. Lung garcia clear to auscultation and percussion. CARDIAC: Normal S1, S2 with no gallops. No murmurs ABDOMEN: Soft. Bowel sounds normal. No organomegaly. No abdominal bruits. Extremities: reveal no edema. No clubbing or cyanosis Neurologically awake, alert, oriented x3 with well-coordinated movements. No focal deficits noted Skin: No rash or skin lesions. Psychiatric: Coperative. Nonsu - Labs CBC & Chem 7: 05/14/19 07:00 05/15/19 07:03 Assessment and Plan Assessment: Right wrist cellulitis and possible abscess with purulent drainage and also breaking of hardware from previous surgery. Sepsis secondary to above. Patient was tachycardic and febrile. T-max 101.3 Juvenile rheumatoid arthritis with significant arthritic changes hands and feet. Legal blindness COPD not in exacerbation Mild protein calorie malnutrition Normocytic anemia. Rule out iron deficiency and B12 deficiency DVT prophylaxis with heparin subcu PLAN: Patient will be continued on antibiotics in the form of vancomycin. Follow-up wound culture report. Orthopedic surgery and ID is following. Continue with pain management. Prognosis guarded at this time. Further recommendations based on the clinical course. Time takengreater than 35 minutes. Discussed with the family at bedside in detail.
[2019-05-15] MEDS: traZODone HCL 100 MG TAB PO SCH (20:28)
[2019-05-16] MEDS: HYDROmorphone 1 MG/ML 1 ML SYRINGE IVP PRN ×3 (00:22→05:51)
[2019-05-16] MEDS: HYDROcodone/APAP 7.5-325MG 1 EACH TAB PO PRN ×5 (00:38→21:58)
[2019-05-16 06:59] LABS: Basophils % (A) 0 %; Eosinophils # (A) 0.1 k/uL (0-0.7); Eosinophils % (A) 2 %; HCT 35.5 % (34.0-46.0); HGB 10.9 gm/dL (11.4-16.0); Hypochromasia Moderate; Lymphocytes % (A) 21 %; MCH 28.8 pg (25.0-35.0); MCHC 30.6 g/dL (31.0-37.0); Monocytes # (A) 0.3 k/uL (0-1.0); Monocytes % (A) 6 %; Neutrophils # (A) 3.1 k/uL (1.3-7.7); Neutrophils % (A) 67 %; Platelet Count 179 k/uL (150-450); RBC 3.78 m/uL (3.80-5.40); RDW 15.8 % (11.5-15.5); WBC 4.7 k/uL (3.8-10.6)
[2019-05-16 07:27] LABS: African American GFR (CKD) >90 (>60 ml/min/1.73 sqM); Anion Gap 6 mmol/L; Blood Urea Nitrogen 8 mg/dL (7-17); Calcium 8.4 mg/dL (8.4-10.2); Carbon Dioxide 27 mmol/L (22-30); Chloride 109 mmol/L (98-107); Glucose 90 mg/dL (74-99); Non-African American GFR(CKD) >90 (>60 ml/min/1.73 sqM); Potassium 4.2 mmol/L (3.5-5.1); Sodium 142 mmol/L (137-145)
[2019-05-16] MEDS: HEPARIN SODIUM,PORCINE 5,000 UNIT/ML 1 ML VIAL SQ SCH ×2 (07:59→20:43)
[2019-05-16] MEDS: SODIUM CHLORIDE 0.9% 1,000 ML IV SCH ×2 (07:59→18:54)
[2019-05-16] MEDS: PANTOPRAZOLE 40 MG/10 ML VIAL IVP SCH (07:59)
--- NOTE | 2019-05-16 11:47 | P.PN ---
Subjective Progress Note Date: 05/16/19 Principal diagnosis: Right hand cellulitis 05/16/19: Patient is seen at bedside today. We are following for her right hand swelling, cellulitis, infection s/p hand surgery many years ago. A small bedside I and D was performed at bedside yesterday. She has been on IV antibiotics, elevation and doing soaks. XRays showed K wire-type pins in the thumb only. There is no other hardware present in the metacarpals or dorsum of the hand. She feels it has continued to improve with the swelling and pain. She has no fever, chills, numbness or tingling. Objective - Vital Signs Vital signs: Vital Signs Temp 98.6 F 05/16/19 06:59 Pulse 83 05/16/19 06:59 Resp 16 05/16/19 06:59 BP 163/92 05/16/19 06:59 Pulse Ox 95 05/16/19 06:59 Intake & Output 05/15/19 05/16/19 05/16/19 18:59 06:59 18:59 Other: Voiding Method Bedpan # Voids 1 1 # Bowel Movements 1 - Exam Inspection of the right hand shows continued improvement with erythema and edema at the dorsum of the hand. It is mildly tender. It is not hot to touch. The small incision at dorsum of the hand is without active bleeding or drainage No other areas of fluid collection or abscess seen. There is no proximal streaking. 2+ radial pulses present and less than 2 second capillary refill is present. Motor and sensation is grossly intact throughout the right upper extremity and hand. She has chronic rheumatoid deformity of the hand and digits. - Constitutional General appearance: Present: no acute distress - Labs CBC & Chem 7: 05/16/19 06:29 05/16/19 06:29 Labs: Abnormal Lab Results - Last 24 Hours (Table) 05/16/19 05/16/19 Range/Units 06:29 06:29 RBC 3.78 L (3.80-5.40) m/uL Hgb 10.9 L (11.4-16.0) gm/dL MCHC 30.6 L (31.0-37.0) g/dL RDW 15.8 H (11.5-15.5) % Chloride 109 H (98-107) mmol/L Microbiology - Last 24 Hours (Table) 05/14/19 17:26 Blood Culture - Preliminary Blood No Growth after 24 hours Assessment and Plan (1) Cellulitis of right hand Narrative/Plan: She continues to improve clinically overall daily. She is continues to be afebrile and her white blood cell count is normal. Recommended continued elevation along with twice a day warm soapy soaks and antibiotics per infectious disease. There are no plans for immediate surgical intervention from orthopedic standpoint. Continue wound care. We will sign off at this point and she may f/u in office in one week. Current Visit: Yes Status: Acute Priority: Medium Code(s): L03.113 - CELLULITIS OF RIGHT UPPER LIMB SNOMED Code(s): 72379834 Time with Patient: Less than 30
--- NOTE | 2019-05-16 14:45 | PN ---
PROGRESS NOTE DATE OF SERVICE: 05/16/2019. REASON FOR FOLLOWUP: Right hand abscess and cellulitis. INTERVAL HISTORY: The patient is currently afebrile. Patient is breathing comfortably. Patient denies having any chest pain or any cough. No worsening pain to the right hand and no diarrhea with antibiotic therapy. PHYSICAL EXAMINATION: Blood pressure 163/92 with a pulse of 83, temperature 98.6. She is 95% on room air. General description is a middle-aged female up in the chair in no distress. Respiratory system: Unlabored breathing. Clear to auscultation anteriorly. Heart S1, S2. Regular rate and rhythm. ABDOMEN: Soft, no tenderness. Right hand dorsum swelling and redness has slightly decreased. LABS: Hemoglobin is 10.9, white count of 4.7, creatinine 0.72. Blood culture repeat has been negative so far. DIAGNOSTIC IMPRESSION AND PLAN: Patient with right hand abscess and cellulitis and secondary bacteremia secondary to MSSA with concern for possible underlying hardware infection. The patient is currently covered with 1 cefazolin 2 g q.8 hours. She will get a PICC line tomorrow for continuation of IV in outpatient setting. Discussed with the Ortho with the removal of the hardware may be needed to completely clear this infection. MMODL / IJN: [id number] /
[2019-05-16] MEDS: traZODone HCL 100 MG TAB PO SCH (20:48)
[2019-05-17] MEDS: SODIUM CHLORIDE 0.9% 1,000 ML IV SCH ×2 (02:35→17:08)
[2019-05-17] MEDS: HYDROcodone/APAP 7.5-325MG 1 EACH TAB PO PRN ×4 (04:01→21:06)
[2019-05-17] MEDS ORDERED: ONDANSETRON 4 MG/2 ML VIAL IVP STA (07:44)
[2019-05-17] MEDS ORDERED: ONDANSETRON 4 MG TAB PO STA (08:13)
[2019-05-17 08:41] LABS: Basophils % (A) 0 %; Eosinophils # (A) 0.1 k/uL (0-0.7); Eosinophils % (A) 2 %; HCT 31.4 % (34.0-46.0); HGB 10.3 gm/dL (11.4-16.0); Hypochromasia Moderate; Lymphocytes # (A) 0.9 k/uL (1.0-4.8); Lymphocytes % (A) 13 %; MCH 30.4 pg (25.0-35.0); MCHC 32.9 g/dL (31.0-37.0); MCV 92.3 fL (80.0-100.0); Mean Platelet Volume 6.9; Monocytes # (A) 0.4 k/uL (0-1.0); Monocytes % (A) 6 %; Neutrophils # (A) 5.3 k/uL (1.3-7.7); Neutrophils % (A) 76 %; Platelet Count 179 k/uL (150-450); RDW 15.5 % (11.5-15.5); WBC 6.9 k/uL (3.8-10.6)
[2019-05-17 08:52] LABS: African American GFR (CKD) >90 (>60 ml/min/1.73 sqM); Anion Gap 1 mmol/L; Blood Urea Nitrogen 6 mg/dL (7-17); Calcium 8.6 mg/dL (8.4-10.2); Carbon Dioxide 29 mmol/L (22-30); Chloride 106 mmol/L (98-107); Glucose 83 mg/dL (74-99); Non-African American GFR(CKD) >90 (>60 ml/min/1.73 sqM); Potassium 3.7 mmol/L (3.5-5.1); Sodium 136 mmol/L (137-145)
[2019-05-17] MEDS: HEPARIN SODIUM,PORCINE 5,000 UNIT/ML 1 ML VIAL SQ SCH ×2 (10:05→21:12)
[2019-05-17] MEDS: PANTOPRAZOLE 40 MG/10 ML VIAL IVP SCH (10:06)
[2019-05-17 12:01] LABS: Prothrombin Time 10.9 sec (9.0-12.0)
--- NOTE | 2019-05-17 13:19 | IR ---
PICC LINE PLACEMENT: HISTORY: Infection requiring long-term antibiotic therapy PROCEDURE: Ultrasound and fluoroscopic guidance of PICC line placement. COMPLICATIONS: None ANESTHESIA: 1. 1% Lidocaine locally. FINDINGS/TECHNIQUE: The procedure was explained to the patient. The risks, complications, benefits and alternatives were discussed and any questions were answered. Informed consent was obtained. The patient was placed supine on the fluoroscopic table and prepped and draped in the usual sterile fash ion. Utilizing a 21 gauge needle and sonographic and fluoroscopic guidance, access in the left ceph alic vein was achieved and there is placement of a 0.018 guidewire. The vein is patent. A 4-F sheat h was placed over the guidewire. The guidewire and dilator were removed and a 4-F. PICC line was alexia sarah through the sheath with the tip at the level of the SVC. The sheath was removed, the catheter wa s flushed and sutured into position. The patient was stable throughout the procedure and remained st able upon discharge from the Department of Radiology. The vein puncture was patent under ultrasound. A zuluaga scale image was obtained to document patency of the vein punctured. All elements of the maximal barrier technique were utilized. FLUOROSCOPY TIME: 0.2 minutes and one image submitted IMPRESSION: Successful PICC line placement under ultrasound and fluoroscopic guidance. Note is made that the niki ent's nurse was called to 0. To be a right suprahilar mass noted on fluoroscopy while positioning the catheter.
--- NOTE | 2019-05-17 13:46 | XR ---
EXAMINATION TYPE: XR chest 2V DATE OF EXAM: 05/17/2019 COMPARISON: None HISTORY: 63-year-old female with suspected right lung mass TECHNIQUE: AP and lateral views FINDINGS: Left PICC tip at the mid SVC level. Significant rightward patient rotation ornamenter hand regarding mediastinal contours. Heart appears mildly enlarged. Diffuse interstitial prominence. Small effusion s with bibasilar opacities, right greater than left. Some pleural-based calcification suggested overl kaden the left hemidiaphragm. Deformities of the proximal humeri and both sides probably old fracture deformities. IMPRESSION: 1. Limited, rotated exam. Cardiomegaly. Correlate to exclude mild pulmonary vascular congestion. 2. Small effusions with adjacent atelectasis and/or consolidation, right greater than left. 3. If persistent concern for underlying lung mass, nonemergent follow-up contrast enhanced CT chest c an provide more detailed assessment of the lung parenchyma. 4. Calcified pleural plaque overlying the left hemidiaphragm may reflect prior asbestos exposure.
--- NOTE | 2019-05-17 14:27 | PN ---
PROGRESS NOTE DATE OF SERVICE: 05/17/2019 REASON FOR FOLLOWUP: Right hand MSSA abscess cellulitis and bacteremia. INTERVAL HISTORY: The patient is currently afebrile. The patient is breathing comfortably. The patient denies having any chest pain or any cough. Right hand pain and swelling have slightly decreased. No nausea, no vomiting. No abdominal pain, no diarrhea. PHYSICAL EXAMINATION: Blood pressure is 151/86, pulse of 89, temperature 98.4, she is 95% on room air. General description is a middle-aged female, up in the bed in no distress. RESPIRATORY SYSTEM: Unlabored breathing, clear to auscultation anteriorly. HEART: S1, S2. Regular rate and rhythm. ABDOMEN: Soft, no tenderness. Right hand swelling has improved, no drainage. LABS: Creatinine 0.71, white count of 6 1. DIAGNOSTIC IMPRESSION/PLAN: Patient with right hand abscess, cellulitis with concern for underlying hardware; however, as per discussion with Orthopedics, did not see any hardware in the area of swelling or redness. Patient's follow up blood culture has been negative. She will get a PICC line and antibiotic in the form of cephazolin for 4 weeks with weekly morning with followup in the office in 1 week. Continue supportive care. MMODL / IJN: [id number] /
--- NOTE | 2019-05-17 16:11 | P.PN ---
Subjective Progress Note Date: 05/16/19 Principal diagnosis: right wrist cellulitis and broken hardware. 05/16/2019 Patient is seen and evaluated in room at bedside; denies any complaint of pain; tolerating antibiotic therapy Vital signs remained stable with a temperature of 98.6, pulse 83 and blood pressure of 163/92; SpO2 of 95% on room air Lab review shows a white blood count of 4.7, hemoglobin of 10.9 and creatinine of 0.7 to Patient remains on IV cefazolin 2 g every 8 hours for right hand abscess and cellulitis with secondary bacteremia with MSSA with concern for possible underlying hardware infection; patient is scheduled for a PICC line tomorrow for continuation of IV antibiotic as outpatient; ID is still concerned about need for removal of hardware if infection fails to resolve Objective - Vital Signs Vital signs: Vital Signs Temp 98.6 F 05/16/19 06:59 Pulse 83 05/16/19 06:59 Resp 16 05/16/19 06:59 BP 163/92 05/16/19 06:59 Pulse Ox 95 05/16/19 06:59 Intake & Output 05/15/19 05/16/19 05/16/19 18:59 06:59 18:59 Other: Voiding Method Bedpan # Voids 1 1 # Bowel Movements 1 - Exam HEENT: Normocephalic. Neck is supple. Pupils reactive. Nostrils clear. Oral cavity is moist. Ears reveal no drainage. Neck reveals no JVD, carotid bruits, or thyromegaly. CHEST EXAMINATION: Trachea is central. Symmetrical expansion. Lung garcia clear to auscultation and percussion. CARDIAC: Normal S1, S2 with no gallops. No murmurs ABDOMEN: Soft. Bowel sounds normal. No organomegaly. No abdominal bruits. Extremities: reveal no edema. No clubbing or cyanosis Neurologically awake, alert, oriented x3 with well-coordinated movements. No focal deficits noted Skin: No rash or skin lesions. Psychiatric: Coperative. Nonsu - Labs CBC & Chem 7: 05/17/19 07:48 05/17/19 07:48 Labs: Abnormal Lab Results - Last 24 Hours (Table) 05/16/19 05/16/19 Range/Units 06:29 06:29 RBC 3.78 L (3.80-5.40) m/uL Hgb 10.9 L (11.4-16.0) gm/dL MCHC 30.6 L (31.0-37.0) g/dL RDW 15.8 H (11.5-15.5) % Chloride 109 H (98-107) mmol/L Microbiology - Last 24 Hours (Table) 05/14/19 17:26 Blood Culture - Preliminary Blood No Growth after 24 hours Assessment and Plan Assessment: Right wrist cellulitis and possible abscess with purulent drainage and also breaking of hardware from previous surgery. Sepsis secondary to above. Patient was tachycardic and febrile. T-max 101.3 Juvenile rheumatoid arthritis with significant arthritic changes hands and feet. Legal blindness COPD not in exacerbation Mild protein calorie malnutrition Normocytic anemia. Rule out iron deficiency and B12 deficiency DVT prophylaxis with heparin subcu PLAN: Patient will be continued on antibiotics in the form of vancomycin. Follow-up wound culture report. Orthopedic surgery and ID is following. Continue with pain management. Prognosis guarded at this time. Further recommendations based on the clinical course. Time takengreater than 35 minutes. Discussed with the family at bedside in detail.
--- NOTE | 2019-05-17 18:33 | P.PN ---
Subjective Progress Note Date: 05/17/19 Principal diagnosis: right wrist cellulitis and broken hardware. 05/16/2019 Patient is seen and evaluated in room at bedside; denies any complaint of pain; tolerating antibiotic therapy Vital signs remained stable with a temperature of 98.6, pulse 83 and blood pressure of 163/92; SpO2 of 95% on room air Lab review shows a white blood count of 4.7, hemoglobin of 10.9 and creatinine of 0.7 to Patient remains on IV cefazolin 2 g every 8 hours for right hand abscess and cellulitis with secondary bacteremia with MSSA with concern for possible underlying hardware infection; patient is scheduled for a PICC line tomorrow for continuation of IV antibiotic as outpatient; ID is still concerned about need for removal of hardware if infection fails to resolve 05/17/2019 Patient is seen and evaluated for follow-up; she is status post PICC line placement Vital signs stable with a temperature of 98.4, pulse 89, and blood pressure 1 51/86 with SpO2 of 95% on room air Lab review shows a stable CBC and creatinine of 0.71 Patient with right hand abscess/cellulitis with concern for underlying hardware infection; we'll has evaluated patient and did not see any heart rate in ED of swelling or redness syndrome no surgical intervention is recommended at this time; patient is status post PICC line placement to continue with cefazolin for a total of 4 weeks of therapy with weekly follow-up with ID Incidental finding of right suprahilar mass while patient was undergoing PICC line placement under ultrasound and fluoroscopic guidance; we will order CT of the chest to further evaluate presence of lung mass Objective - Vital Signs Vital signs: Vital Signs Temp 98.4 F 05/17/19 13:13 Pulse 89 05/17/19 13:13 Resp 12 05/17/19 13:00 BP 145/85 05/17/19 13:00 Pulse Ox 95 05/17/19 13:13 Intake & Output 05/16/19 05/17/19 05/17/19 18:59 06:59 18:59 Intake Total 250 Balance 250 Intake: Oral 250 Other: Voiding Method Bedpan # Voids 1 3 2 # Bowel Movements 1 - Exam HEENT: Normocephalic. Neck is supple. Pupils reactive. Nostrils clear. Oral cavity is moist. Ears reveal no drainage. Neck reveals no JVD, carotid bruits, or thyromegaly. CHEST EXAMINATION: Trachea is central. Symmetrical expansion. Lung garcia clear to auscultation and percussion. CARDIAC: Normal S1, S2 with no gallops. No murmurs ABDOMEN: Soft. Bowel sounds normal. No organomegaly. No abdominal bruits. Extremities: reveal no edema. No clubbing or cyanosis Neurologically awake, alert, oriented x3 with well-coordinated movements. No focal deficits noted Skin: No rash or skin lesions. Psychiatric: Coperative. Nonsu - Labs CBC & Chem 7: 05/17/19 07:48 05/17/19 07:48 Labs: Abnormal Lab Results - Last 24 Hours (Table) 05/17/19 05/17/19 Range/Units 07:48 07:48 RBC 3.40 L (3.80-5.40) m/uL Hgb 10.3 L (11.4-16.0) gm/dL Hct 31.4 L (34.0-46.0) % Lymphocytes # 0.9 L (1.0-4.8) k/uL Sodium 136 L (137-145) mmol/L BUN 6 L (7-17) mg/dL Microbiology - Last 24 Hours (Table) 05/14/19 17:26 Blood Culture - Preliminary Blood No Growth after 48 hours Assessment and Plan Assessment: Right wrist cellulitis and possible abscess with purulent drainage and also breaking of hardware from previous surgery. Sepsis secondary to above. Patient was tachycardic and febrile. T-max 101.3 Juvenile rheumatoid arthritis with significant arthritic changes hands and feet. Legal blindness COPD not in exacerbation Mild protein calorie malnutrition Normocytic anemia. Rule out iron deficiency and B12 deficiency DVT prophylaxis with heparin subcu PLAN: Patient will be continued on antibiotics in the form of vancomycin. Follow-up wound culture report. Orthopedic surgery and ID is following. Continue with pain management. Prognosis guarded at this time. Further recommendations based on the clinical course. Time takengreater than 35 minutes. Discussed with the family at bedside in detail. Time with Patient: Greater than 30
--- NOTE | 2019-05-17 20:48 | CT ---
EXAMINATION TYPE: CT chest w con DATE OF EXAM: 05/17/2019 COMPARISON: None HISTORY: RT SUPRAHILIAR MASS, RT HAND CELLULITIS CT DLP: 270.4 mGycm Automated exposure control for dose reduction was used. CONTRAST: Performed with IV Contrast, patient injected with 100 mL of Isovue 300. Heart appears normal. There is large hiatal hernia. There is some mild infiltrate and atelectasis rig ht posterior lung base. There is no definite pleural effusion. There is some calcification of the lef t side diaphragmatic pleura. There is significant atrophy right kidney. Left kidney has normal size. There is no hydronephrosis. There are no hilar masses. Thoracic aorta shows no aneurysm or dissection. Specifically there is no e vidence of a mediastinal mass. Ascending aorta measures 3.3 cm. There is no pericardial effusion. The re are no hilar masses. Pulmonary arteries appear normal. There is osteopenia and compression deformi ty of numerous thoracic and lumbar vertebra with biconcave deformity. IMPRESSION: Mild infiltrate and atelectasis right posterior lung base. Calcified pleural plaque left lung base. N o suspicious pulmonary mass. Small right kidney consistent with atrophy. Moderate hiatal hernia. Numerous thoracic compression fractures suggestive of significant osteomalacia.
[2019-05-17] MEDS: traZODone HCL 100 MG TAB PO SCH (21:07)
[2019-05-18] MEDS: SODIUM CHLORIDE 0.9% 1,000 ML IV SCH ×2 (00:03→08:06)
[2019-05-18] MEDS: HYDROcodone/APAP 7.5-325MG 1 EACH TAB PO PRN ×3 (04:02→12:24)
[2019-05-18 07:40] VITALS: BP 124/74; PULSE 93; RESP 17; TEMP 98.7
[2019-05-18] MEDS: HEPARIN SODIUM,PORCINE 5,000 UNIT/ML 1 ML VIAL SQ SCH (08:03)
[2019-05-18] MEDS ORDERED: PANTOPRAZOLE 40 MG TABLET PO SCH (09:00)
[2019-05-18 11:17] LABS: Basophils % (A) 0 %; Eosinophils # (A) 0.1 k/uL (0-0.7); Eosinophils % (A) 2 %; HCT 32.2 % (34.0-46.0); HGB 9.9 gm/dL (11.4-16.0); Hypochromasia Moderate; Lymphocytes # (A) 0.9 k/uL (1.0-4.8); Lymphocytes % (A) 12 %; MCH 28.7 pg (25.0-35.0); MCHC 30.8 g/dL (31.0-37.0); MCV 93.1 fL (80.0-100.0); Monocytes # (A) 0.4 k/uL (0-1.0); Monocytes % (A) 6 %; Neutrophils # (A) 5.6 k/uL (1.3-7.7); Neutrophils % (A) 78 %; Platelet Count 177 k/uL (150-450); RBC 3.46 m/uL (3.80-5.40); RDW 15.8 % (11.5-15.5); WBC 7.3 k/uL (3.8-10.6)
[2019-05-18 11:45] LABS: Calcium 8.5 mg/dL (8.4-10.2); Potassium 3.9 mmol/L (3.5-5.1)
--- NOTE | 2019-05-18 14:09 | PN ---
PROGRESS NOTE DATE OF SERVICE: 05/18/2019 REASON FOR FOLLOWUP: Right hand cellulitis MSSA with secondary bacteremia. INTERVAL HISTORY: The patient is currently afebrile. Patient has been breathing comfortably. Denies having any chest pain or any cough. No nausea, no vomiting. Some pain to the right heel area, but no worsening. No diarrhea. PHYSICAL EXAMINATION: Blood pressure 124/74 with a pulse of 90, temperature 98.7, she is 98% on room air. General description is a middle-aged female, lying in bed in no distress. RESPIRATORY SYSTEM: Unlabored breathing, clear to auscultation anteriorly. HEART: S1, S2. Regular rate and rhythm. ABDOMEN: Soft, no tenderness. Right hand is currently dressed up, no obvious drainage on the dressing. LABS: Hemoglobin is 9.8, white count of 7.3, BUN of 7, creatinine 0.83. Blood culture has been negative. DIAGNOSTIC IMPRESSION AND PLAN: Patient with right hand abscess, cellulitis with secondary bacteremia with no evidence of any hardware in the field of infection as per Orthopedics. The patient is currently culture positive, she will get a PICC line. Continue with IV antibiotics for at least 4 weeks with close outpatient followup with weekly labs. MMODL / IJN: [id number] /
--- NOTE | 2019-05-18 14:33 | P.DS ---
Providers Date of admission: 05/12/19 20:05 Expected date of discharge: 05/18/19 Attending physician: Osmar Bloom Consults: 05/12/19 22:51 Consult Physician Routine Consulting Provider: [employer] Consult Reason/Comments: cellulitis right hand, right hand pin came out of hand Do you want consulting provider notified?: Already Contacted Consult Physician Routine Consulting Provider: Garry Osullivan Consult Reason/Comments: cellulitis of right hand Do you want consulting provider notified?: Already Contacted Primary care physician: Stated None Hospital Course: 63 y.o.femaleadmitted to the hospital with pain and swelling and redness of right hand dorsum which started about a week prior to coming to the hospital; patient does have history of prior hand surgery and noticed hardware sticking out and which was subsequently removed; patient continued to have swelling redness and pain of the hand and was admitted to the hospital for further evaluation by a hand surgeon; patient was started on IV vancomycin; hence a did not recommend any surgical treatment and was recommended elevation of had been doing soaks; x-ray was repeated which showed a viral-type pain and symptom and no heart rate are present and metacarpals or dorsum of the hand; patient underwent bedside incision and drainage of dorsum of right 10 with minimal serous type fluid expression; no further interventions was recommended; ID saw patient and recommended to continue with IV cefazolin for 4-6 weeks and follow- up with infection diseases clinic in 1 week postdischarge Plan - Discharge Summary Discharge Rx Participant: Yes New Discharge Prescriptions: New ceFAZolin [Kefzol] 2 gm IVP Q8HR #84 vial Continue Omeprazole [PriLOSEC] 20 mg PO AC-BID predniSONE 17.5 mg PO DAILY Sodium Chloride 5% Ophth Oint [Carlos 128] 1 applic BOTH EYES HS Estradiol [Estrace] 1 mg PO DAILY Clopidogrel [Plavix] 75 mg PO DAILY traZODone HCL [Desyrel] 200 mg PO HS Potassium Chloride [Klor-Con 10] 10 meq PO DAILY traZODone HCL 100 mg PO DAILY fentaNYL 100MCG/HR PATCH [Duragesic 100MCG/HR] 1 patch TRANSDERM Q72H #1 patch HYDROcodone/APAP 10-325MG [[place] 10-325] 1 tab PO BID 3 Days #6 tab Discharge Medication List Clopidogrel [Plavix] 75 mg PO DAILY 05/12/19 [History] Estradiol [Estrace] 1 mg PO DAILY 05/12/19 [History] Omeprazole [PriLOSEC] 20 mg PO AC-BID 05/12/19 [History] Potassium Chloride [Klor-Con 10] 10 meq PO DAILY 05/12/19 [History] Sodium Chloride 5% Ophth Oint [Carlos 128] 1 applic BOTH EYES HS 05/12/19 [History] predniSONE 17.5 mg PO DAILY 05/12/19 [History] traZODone HCL 100 mg PO DAILY 05/12/19 [History] traZODone HCL [Desyrel] 200 mg PO HS 05/12/19 [History] ceFAZolin [Kefzol] 2 gm IVP Q8HR #84 vial 05/17/19 [Rx] HYDROcodone/APAP 10-325MG [[place] 10-325] 1 tab PO BID 3 Days #6 tab 05/18/19 [Rx] fentaNYL 100MCG/HR PATCH [Duragesic 100MCG/HR] 1 patch TRANSDERM Q72H #1 patch 05/18/19 [Rx] Follow up Appointment(s)/Referral(s): Conrad Krishnamurthy PAC [PHYSICIAN PICKLER HELPER] - 1 Week Garry Osullivan MD [STAFF PHYSICIAN] - 1 Week Parker Painting MD [STAFF PHYSICIAN] - 1 Week Ambulatory/Diagnostic Orders: Basic Metabolic Panel [LAB.AMB] Location: None Selected C Reactive Protein [LAB.AMB] Location: None Selected Complete Blood Count w/diff [LAB.AMB] Location: None Selected Erythrocyte Sedimentation Rate [LAB.AMB] Location: None Selected Activity/Diet/Wound Care/Special Instructions: Warm soapy soaks twice daily. Light bandage change daily Elevate right hand F/U in office in one week at [facility] Discharge Disposition: TRANSFER TO SNF/ECF
== END 2019-05-18 15:31 | DRG 559 ==
LOC: 4SSUR 20:05
PROVIDERS: ADMIT Internal Medicine; ATTEND Internal Medicine
PROC: 02HV33Z Insertion of Infusion Device into Superior Vena Cava, Percutaneous Approach (ICD-10-PCS; principal; 2019-05-17 11:00)
DX: T84.619A Infection and inflammatory reaction due to internal fixation device of unspecified bone of arm, initial encounter (principal); A41.01 Sepsis due to Methicillin susceptible Staphylococcus aureus; L03.113 Cellulitis of right upper limb; E44.1 Mild protein-calorie malnutrition; T84.418A Breakdown (mechanical) of other internal orthopedic devices, implants and grafts, initial encounter; M08.99 Juvenile arthritis, unspecified, multiple sites; H54.8 Legal blindness, as defined in USA; J44.9 Chronic obstructive pulmonary disease, unspecified; D64.9 Anemia, unspecified; F32.9 Major depressive disorder, single episode, unspecified; F41.9 Anxiety disorder, unspecified; Z68.20 Body mass index [BMI] 20.0-20.9, adult; Z79.02 Long term (current) use of antithrombotics/antiplatelets; Z79.890 Hormone replacement therapy; Z79.891 Long term (current) use of opiate analgesic; Z79.899 Other long term (current) drug therapy; Z87.891 Personal history of nicotine dependence; Z98.1 Arthrodesis status; Z82.49 Family history of ischemic heart disease and other diseases of the circulatory system; Z81.1 Family history of alcohol abuse and dependence
CPT/HCPCS: 36573; 71046; 71260; 80048; 80053; 80202; 82565; 82607; 83605; 85025; 85027; 85610; 87040

== ENCOUNTER 2019-06-05 19:34 | Inpatient (IN) | payer MEDICARE ==
[2019-06-05] MEDS ORDERED: VANCOMYCIN IV PER PHARMACY 1 EACH MISC MISCELLANE PRN (19:45)
--- NOTE | 2019-06-05 19:51 | ED ---
Recheck HPI - General Chief Complaint: Recheck/Abnormal Lab/Rx Stated Complaint: Pic Line Infection Time Seen by Provider: 06/05/19 19:45 Source: EMS Mode of arrival: EMS Limitations: altered mental status - History of Present Illness Initial Comments: This is 63 female here for evaluation accepted in transfer from [facility]. Patient does have PICC line antibiotics currently for treatment of right hand cellulitis cellulase is a. Resolved at this point in right hand the patient still on antibiotics. Patient is made to fevers chills no pain no abdominal pain no shortness breath or cough or congestion no recent travel history or sick contacts no dysuria. Patient was transferred today for evaluation of possible bacteremia secondary to PICC line infection. MD Complaint: abnormal lab (Patient's today for evaluation regarding elevated white count fever possible bacteremia secondary to PICC line infection) -: days(s) Initial Visit For: other (Increasing weakness and fatigue) Returns Today for: Called Because of Abnormal Lab/Test (Patient was sent to ER from outside facility secondary to reevaluation as he was admitted here 2 weeks ago) Symptoms Since Prior Visit: fever Context: other (Patient continues to not feel well increasing weakness) Associated Symptoms: fever, chills Treatments Prior to Arrival: IV/IO (Patient does have PICC line, presumption of PICC line infection currently) - Related Data Home Medications Medication Instructions Recorded Confirmed Clopidogrel [Plavix] 75 mg PO DAILY 05/12/19 05/12/19 Estradiol [Estrace] 1 mg PO DAILY 05/12/19 05/12/19 Omeprazole [PriLOSEC] 20 mg PO AC-BID 05/12/19 05/12/19 Potassium Chloride [Klor-Con 10] 10 meq PO DAILY 05/12/19 05/12/19 Sodium Chloride 5% Ophth Oint 1 applic BOTH EYES HS 05/12/19 05/12/19 [Carlos 128] predniSONE 17.5 mg PO DAILY 05/12/19 05/12/19 traZODone HCL 100 mg PO DAILY 05/12/19 05/12/19 traZODone HCL [Desyrel] 200 mg PO HS 05/12/19 05/12/19 Previous Rx's Medication Instructions Recorded ceFAZolin [Kefzol] 2 gm IVP Q8HR #84 vial 05/17/19 HYDROcodone/APAP 10-325MG [[place] 1 tab PO BID 3 Days #6 tab 05/18/19 10-325] fentaNYL 100MCG/HR PATCH 1 patch TRANSDERM Q72H #1 patch 05/18/19 [Duragesic 100MCG/HR] Allergies Allergy/AdvReac Type Severity Reaction Status Date / Time ibuprofen AdvReac Nausea & Verified 06/05/19 19:45 Vomiting Review of Systems ROS Statement: Those systems with pertinent positive or pertinent negative responses have been documented in the HPI. ROS Other: All systems not noted in ROS Statement are negative. Past Medical History Past Medical History: Rheumatoid Arthritis (RA) Additional Past Medical History / Comment(s): blind, juvenile RA History of Any Multi-Drug Resistant Organisms: None Reported Additional Past Surgical History / Comment(s): mulitple joint surgeries, eye surgery Past Anesthesia/Blood Transfusion Reactions: No Reported Reaction Past Psychological History: Anxiety, Depression Smoking Status: Former smoker Past Drug Use History: Marijuana - Past Family History Father Family Medical History: Myocardial Infarction (SD) Additional Family Medical History / Comment(s): ETOH Mother Family Medical History: No Reported History General Exam Limitations: altered mental status General appearance: alert, in no apparent distress Head exam: Present: atraumatic, normocephalic, normal inspection Eye exam: Present: normal appearance, PERRL, EOMI. Absent: scleral icterus, conjunctival injection, periorbital swelling ENT exam: Present: normal exam, mucous membranes moist Neck exam: Present: normal inspection. Absent: tenderness, meningismus, lymphadenopathy Respiratory exam: Present: normal lung sounds bilaterally. Absent: respiratory distress, wheezes, rales, rhonchi, stridor Cardiovascular Exam: Present: regular rate, normal rhythm, normal heart sounds. Absent: systolic murmur, diastolic murmur, rubs, gallop, clicks GI/Abdominal exam: Present: soft, normal bowel sounds. Absent: distended, tenderness, guarding, rebound, rigid Extremities exam: Present: normal inspection, full ROM, normal capillary refill. Absent: tenderness, pedal edema, joint swelling, calf tenderness Back exam: Present: normal inspection Neurological exam: Present: alert, oriented X3, CN II-XII intact Psychiatric exam: Present: normal affect, normal mood Skin exam: Present: warm, dry, intact, normal color. Absent: rash Course Vital Signs 06/05/19 19:35 Temperature 98.6 F Pulse Rate 100 Respiratory 20 Rate Blood Pressure 157/95 O2 Sat by Pulse 98 Oximetry - Reevaluation(s) Reevaluation #1: 06/05/19 19:53 Medical records reviewed Reevaluation #2: 06/05/19 19:53 Patient has no significant source of infection at prior hospital Reevaluation #3: 06/05/19 19:53 Will have infectious disease consult here in this hospital - Consultations Consultation #1: spoke w Dr Pearl re admission and is agreeable Medical Decision Making - Medical Decision Making 63 female here for evaluation patient has recent treatment for right hand cellulitis PICC line, likely bacteremia secondary to PICC line placement if she has fevers significantly elevated infection primers including a white blood cell count 30, patient be admitted for treatment Disposition Clinical Impression: Bacteremia, Weakness, Fever Disposition: HOME SELF-CARE Condition: Good Is patient prescribed a controlled substance at d/c from ED?: No Referrals: Ju Mcnair MD [Primary Care Provider] - 1-2 days
[2019-06-05] MEDS ORDERED: VANCOMYCIN 750 MG in SODIUM CHLORIDE 0.9% 250 ML IVPB STA (19:53)
[2019-06-05] MEDS: SODIUM CHLORIDE 0.9% 1,000 ML IV SCH (20:29)
[2019-06-05 20:50] LABS: African American GFR (CKD) >90 (>60 ml/min/1.73 sqM); Anion Gap 6 mmol/L; Blood Urea Nitrogen 16 mg/dL (7-17); Calcium 7.2 mg/dL (8.4-10.2); Carbon Dioxide 23 mmol/L (22-30); Chloride 108 mmol/L (98-107); Glucose 83 mg/dL (74-99); Non-African American GFR(CKD) >90 (>60 ml/min/1.73 sqM); Potassium 4.9 mmol/L (3.5-5.1); Sodium 137 mmol/L (137-145)
[2019-06-05 20:57] LABS: Basophils # (A) 0.1 k/uL (0-0.2); Basophils % (A) 0 %; Eosinophils # (A) 0.1 k/uL (0-0.7); Eosinophils % (A) 0 %; HCT 34.6 % (34.0-46.0); HGB 10.5 gm/dL (11.4-16.0); Hypochromasia Marked; Lymphocytes # (A) 0.8 k/uL (1.0-4.8); Lymphocytes % (A) 3 %; MCH 28.4 pg (25.0-35.0); MCHC 30.3 g/dL (31.0-37.0); MCV 93.6 fL (80.0-100.0); Mean Platelet Volume 7.2; Monocytes # (A) 0.6 k/uL (0-1.0); Monocytes % (A) 2 %; Neutrophils # (A) 22.4 k/uL (1.3-7.7); Neutrophils % (A) 93 %; Platelet Count 224 k/uL (150-450); RBC 3.69 m/uL (3.80-5.40); RDW 15.4 % (11.5-15.5); WBC 24.1 k/uL (3.8-10.6)
[2019-06-05] MEDS ORDERED: ACETAMINOPHEN TAB 325 MG TAB PO STA (21:27)
[2019-06-06] MEDS: PIPERACILLIN-TAZOBACTAM 3.375 GM in SODIUM CHLORIDE 0.9% 100 ML IVPB SCH ×2 (00:28→09:02)
[2019-06-06] MEDS: SODIUM CHLORIDE 0.9% 1,000 ML IV SCH ×2 (04:48→12:35)
[2019-06-06] MEDS ORDERED: HYDROcodone/APAP 10-325MG 1 EACH TAB PO ONE (06:07)
[2019-06-06] MEDS: VANCOMYCIN 750 MG in SODIUM CHLORIDE 0.9% 250 ML IVPB SCH ×2 (06:11→22:12)
[2019-06-06] MEDS: PANTOPRAZOLE 40 MG/10 ML VIAL IV SCH (09:02)
[2019-06-06] MEDS: ENOXAPARIN 40 MG/0.4 ML SYRINGE SQ SCH (09:02)
[2019-06-06] MEDS: HYDROcodone/APAP 10-325MG 1 EACH TAB PO PRN ×2 (09:02→17:10)
[2019-06-06] MEDS: CLOPIDOGREL 75 MG TAB PO SCH (09:08)
[2019-06-06] MEDS: ACETAMINOPHEN TAB 500 MG TAB PO SCH ×2 (09:40→17:15)
[2019-06-06] MEDS: ESCITALOPRAM 20 MG TAB PO SCH (09:40)
[2019-06-06 10:02] LABS: Basophils # (A) 0.1 k/uL (0-0.2); Basophils % (A) 1 %; Eosinophils # (A) 0.1 k/uL (0-0.7); Eosinophils % (A) 0 %; HCT 32.8 % (34.0-46.0); HGB 10.1 gm/dL (11.4-16.0); Hypochromasia Marked; Lymphocytes # (A) 0.6 k/uL (1.0-4.8); Lymphocytes % (A) 2 %; MCH 29.4 pg (25.0-35.0); MCHC 30.7 g/dL (31.0-37.0); MCV 95.7 fL (80.0-100.0); Mean Platelet Volume 6.9; Monocytes # (A) 0.6 k/uL (0-1.0); Monocytes % (A) 2 %; Neutrophils # (A) 22.9 k/uL (1.3-7.7); Neutrophils % (A) 94 %; Platelet Count 249 k/uL (150-450); RBC 3.43 m/uL (3.80-5.40); RDW 15.1 % (11.5-15.5); WBC 24.3 k/uL (3.8-10.6)
[2019-06-06 10:21] LABS: African American GFR (CKD) >90 (>60 ml/min/1.73 sqM); Anion Gap 11 mmol/L; Blood Urea Nitrogen 13 mg/dL (7-17); Calcium 7.1 mg/dL (8.4-10.2); Carbon Dioxide 18 mmol/L (22-30); Chloride 107 mmol/L (98-107); Glucose 64 mg/dL (74-99); Non-African American GFR(CKD) >90 (>60 ml/min/1.73 sqM); Potassium 3.7 mmol/L (3.5-5.1); Sodium 136 mmol/L (137-145)
[2019-06-06] MEDS: ONDANSETRON 4 MG/2 ML VIAL IVP PRN (13:24)
--- NOTE | 2019-06-06 14:13 | CT ---
EXAMINATION TYPE: CT abdomen pelvis wo con DATE OF EXAM: 06/06/2019 HISTORY: Generalized abdominal pain, constipation CT DLP: 358.1 mGycm. Automated Exposure Control for Dose Reduction was Utilized. TECHNIQUE: CT scan of the abdomen and pelvis is performed without oral or IV contrast. COMPARISON: NONE FINDINGS: Within the limitations of a non-contrast study, the following observations are made. LUNG BASES: Calcified pleural plaque left lung base. Subacute or chronic right lateral eighth and brittani th rib fractures noted. LIVER/GB: Mild right lateral ascites. PANCREAS: No significant abnormality is seen. SPLEEN: No significant abnormality is seen. ADRENALS: No significant abnormality is seen. KIDNEYS: Asymmetric diminished size and cortical thinning to right kidney. BOWEL: Moderate to large sized hiatal hernia. Suboptimal evaluation of bowel without enteric contrast . There is slight prominence of the duodenal sweep with air-fluid level. Small bowel loops scattered throughout the abdomen and pelvis show areas of prominence and air fluid levels. There is moderate to severe wall thickening involving the transverse colon with extension into the left colon and additio nal area of involvement throughout the entire sigmoid colon into rectum with mild/moderate ill-define d fluid and fat stranding. Right colon shows some prominence without abnormal wall thickening but per haps mild to moderate ill-defined fluid and fat stranding. GENITAL ORGANS: Anteverted uterus. Adjacent scattered pelvic phleboliths. LYMPH NODES: No greater than 1cm abdominal or pelvic lymph nodes are appreciated. OSSEOUS STRUCTURES: Osseous structures are demineralized. Multilevel moderate compression fractures o f L1-L3 levels. Mild compression fracture L5 and T12 level along with T1 level. Moderate narrowing of both hip joints. Underlying distal convex scoliosis centered at L2 level.. OTHER: Mild amount of ascites throughout the abdomen and pelvis is present. IMPRESSION: 1. Fairly long segment at least moderate moderate acute colitis thought present, this may involve or be contiguous from cecum through rectum. No free air well-formed fluid collection/abscess identified. Differential includes pseudomembranous colitis. Correlate clinically. Other infectious inflammatory and/or ischemic etiologies are not excluded.
[2019-06-06] MEDS ORDERED: PIPERACILLIN-TAZOBACTAM 3.375 GM in SODIUM CHLORIDE 0.9% 100 ML IVPB SCH (16:00)
[2019-06-06] MEDS: CHERRY FLAVOR 60 ML BOTTLE PO SCH (17:10)
[2019-06-06] MEDS: VANCOMYCIN ORAL SOLUTION 250 MG/5 ML BOTTLE PO SCH (17:11)
[2019-06-06] MEDS: traZODone HCL 100 MG TAB PO SCH (22:12)
--- NOTE | 2019-06-06 23:57 | P.CONS ---
History of Present Illness - Reason for Consult Consult date: 06/06/19 bacteremia Requesting physician: Gerald Pearl - Chief Complaint Fever and diarrhea x 1 day - History of Present Illness Patient is a 63-year-old female who was recently admitted to this hospital patient did have right hand abscess and cellulitis culture positive for MSSA blood culture was positive for MSSA as well follow blood culture was negative the patient did get a PICC line and was advised a 4-week course of IV cefazolin with concern for possible deep infection, patient was receiving those antibiotics at the [facility] living and the patient was evaluated in the office on Tuesday overall the patient was doing well yesterday morning patient seemed to have a problem with a fever chills generalized not feeling well and the patient did develop significant diarrhea with multiple loose stools which is watery no blood or mucus in the stool patient been complaining of crampy abdominal pain with intensity almost 7-8 out of 10 some nausea but no vomiting patient right hand swelling and redness has resolved there was also concern for possible PICC line infection which has been discontinued patient was started on vancomycin and Zosyn admitted to hospital infectious was consulted for further recommendation for antibiotic therapy patient did have a CT of abdominal pelvis completed which did shows colitis , since admission to the hospital repeated her fever of 101 F did have elevated white count of 24,000 Review of Systems positive point has been mentioned in HPI rest of the systems are negative. Past Medical History Past Medical History: Rheumatoid Arthritis (RA) Additional Past Medical History / Comment(s): blind, juvenile RA History of Any Multi-Drug Resistant Organisms: None Reported Additional Past Surgical History / Comment(s): mulitple joint surgeries, eye surgery Past Anesthesia/Blood Transfusion Reactions: No Reported Reaction Past Psychological History: Anxiety, Depression Smoking Status: Former smoker Past Drug Use History: Marijuana - Past Family History Father Family Medical History: No Reported History Additional Family Medical History / Comment(s): ETOH Mother Family Medical History: No Reported History Medications and Allergies Home Medications Medication Instructions Recorded Confirmed Type Clopidogrel [Plavix] 75 mg PO DAILY 05/12/19 06/05/19 History Estradiol [Estrace] 1 mg PO DAILY 05/12/19 06/05/19 History Potassium Chloride [Klor-Con 10] 10 meq PO DAILY 05/12/19 06/05/19 History Sodium Chloride 5% Ophth Oint 1 applic BOTH EYES HS 05/12/19 06/05/19 History [Carlos 128] predniSONE 17.5 mg PO DAILY 05/12/19 06/05/19 History traZODone HCL 100 mg PO DAILY 05/12/19 06/05/19 History traZODone HCL [Desyrel] 200 mg PO HS 05/12/19 06/05/19 History ceFAZolin [Kefzol] 2 gm IVP Q8HR #84 vial 05/17/19 06/05/19 Rx fentaNYL 100MCG/HR PATCH 1 patch TRANSDERM Q72H #1 patch 05/18/19 06/05/19 Rx [Duragesic 100MCG/HR] Acetaminophen [Tylenol] 650 mg PO Q6H PRN 06/05/19 06/05/19 History Famotidine 20 mg PO HS 06/05/19 06/05/19 History HYDROcodone/APAP 10-325MG [[place] 1 tab PO Q6H PRN 06/05/19 06/05/19 History 10-325] Loperamide [Imodium] 2 mg PO Q2H PRN MDD 4 CAPS/24HRS 06/05/19 06/05/19 History Ondansetron [Zofran] 4 mg PO Q6H PRN 06/05/19 06/05/19 History Phenergan Im Raiza 25mg/Ml 25 mg IM Q8H PRN 06/05/19 History S.boulardii/B.coagulans/Fos 942 mg PO BID 06/05/19 06/05/19 History [Diff-Stat 471 mg Capsule] Allergies Allergy/AdvReac Type Severity Reaction Status Date / Time ibuprofen AdvReac Nausea & Verified 06/05/19 22:00 Vomiting Physical Exam Vitals: Vital Signs Temp Pulse Pulse Resp BP BP Pulse Ox 06/06/19 14:38 99 F 117 H 18 115/76 93 L 06/06/19 07:47 99.9 F H 106 H 16 155/85 92 L 06/06/19 00:07 99.9 F H 100 149/80 91 L 06/06/19 00:00 20 06/05/19 23:49 99.1 F 98 20 163/98 98 06/05/19 22:45 98 F 98 18 143/94 90 L 06/05/19 21:20 101.5 F H 98 18 148/92 98 06/05/19 19:35 98.6 F 100 20 157/95 98 Intake and Output 06/06/19 06/06/19 06/06/19 06:59 14:59 22:59 Intake Total 1390 Balance 1390 Intake: IV 1390 Piperacillin-Tazobactam 3 100 .375 gm In Sodium Chloride 0.9% 100 ml @ 25 mls/hr IVPB Q8HR [facility] Rx# :[id number] Sodium Chloride 0.9% 1, 1040 000 ml @ 130 mls/hr IV . Q7H42M [facility] Rx#:[id number] Vancomycin 750 mg In 250 Sodium Chloride 0.9% 250 ml @ 125 mls/hr IVPB Q16H [facility] Rx#:[id number] Other: Voiding Method Bedside Commode Incontinent Bedpan Diaper # Voids 1 # Bowel Movements 1 Weight 46.72 kg GENERAL DESCRIPTION: Middle-aged male lying in bed, no distress. No tachypnea or accessory muscle of respiration use. HEENT: Shows Pallor , no scleral icterus. Oral mucous membrane is dry. NECK: Trachea central, no thyromegaly. LUNGS: Unlabored breathing. Clear to auscultation anteriorly. No wheeze or crackle. HEART: S1, S2, regular rate and rhythm. ABDOMEN: Soft, mild left-sided tenderness , guarding or rigidity EXTREMITIES: No edema of feet. Right hand previous area of cellulitis and abscess is completely resolved SKIN: No rash, no masses palpable. NEUROLOGICAL: The patient is awake, alert, oriented x3, mood and affect normal. Results CBC & Chem 7: 06/06/19 09:35 06/06/19 09:35 Labs: Abnormal Lab Results - Last 24 Hours (Table) 06/05/19 06/05/19 06/06/19 Range/Units 20:27 20:27 09:35 WBC 24.1 H 24.3 H (3.8-10.6) k/uL RBC 3.69 L 3.43 L (3.80-5.40) m/uL Hgb 10.5 L 10.1 L (11.4-16.0) gm/dL Hct 32.8 L (34.0-46.0) % MCHC 30.3 L 30.7 L (31.0-37.0) g/dL Neutrophils # 22.4 H 22.9 H (1.3-7.7) k/uL Lymphocytes # 0.8 L 0.6 L (1.0-4.8) k/uL Sodium (137-145) mmol/L Chloride 108 H (98-107) mmol/L Carbon Dioxide (22-30) mmol/L Glucose (74-99) mg/dL Calcium 7.2 L (8.4-10.2) mg/dL 06/06/19 Range/Units 09:35 WBC (3.8-10.6) k/uL RBC (3.80-5.40) m/uL Hgb (11.4-16.0) gm/dL Hct (34.0-46.0) % MCHC (31.0-37.0) g/dL Neutrophils # (1.3-7.7) k/uL Lymphocytes # (1.0-4.8) k/uL Sodium 136 L (137-145) mmol/L Chloride (98-107) mmol/L Carbon Dioxide 18 L (22-30) mmol/L Glucose 64 L (74-99) mg/dL Calcium 7.1 L (8.4-10.2) mg/dL Microbiology - Last 24 Hours (Table) 06/05/19 22:13 Catheter Tip Culture - Preliminary Catheter Tip Assessment and Plan Assessment: patient presented to the hospital with sepsis in this patient who did have fever elevated white count tachycardia with significant GI symptom of diarrhea and crampy abdominal pain and CT of abdominal pelvis did shows a long segment of colitis likely infectious colitis with C. difficile to be on the list in this patient currently undergoing treatment for right hand abscess cellulitis and MSSA bacteremia versus PICC line infection, (1) Sepsis Current Visit: Yes Status: Acute Code(s): A41.9 - SEPSIS, UNSPECIFIED ORGANISM SNOMED Code(s): 30124999 (2) Colitis Current Visit: Yes Status: Acute Code(s): K52.9 - NONINFECTIVE GASTROENTERITIS AND COLITIS, UNSPECIFIED SNOMED Code(s): 73360971 Plan: 1-blood cultures obtained stat catheter tip cultures will be followed, 2 we will check a stool for C. difficile- 3-empirically add vancomycin to 50 mg p.o. every 6 hour 4-discontinue Zosyn 5-vancomycin pharmacy to dose her with a target trough of 15 while watching her kidney function and Vanco trough closely. While waiting for blood and catheter tip culture to finalize We will follow on clinical condition and cultures to further adjust medication i f needed Thank you for this consultation we will follow the patient along with you Time with Patient: Greater than 30
[2019-06-07] MEDS: CHERRY FLAVOR 60 ML BOTTLE PO SCH ×4 (00:19→20:36)
[2019-06-07] MEDS: VANCOMYCIN ORAL SOLUTION 250 MG/5 ML BOTTLE PO SCH ×4 (00:19→20:36)
[2019-06-07] MEDS: HYDROcodone/APAP 10-325MG 1 EACH TAB PO PRN ×3 (00:19→14:47)
--- NOTE | 2019-06-07 01:02 | P.HPIM ---
History of Present Illness H&P Date: 06/06/19 Chief Complaint: weakness, pain Patient is a 63-year-old female with PMH of rheumatoid arthritis, depression who was recently admitted for right hand abscess and discharged with PICC and 4-week course of cefazolin. Pt initially did well and had followed with ID on Tuesday with no noted complications. Tuesday pt developed chills, malaise, as well as watery diarrhea. Pt also complaining of cramping severe abdominal pain. In the ED, her vitals were stable, WBC 24k, cr at baseline. With concern for possible PICC infection, her PICC was removed and tip cultured. Patient was started on vancomycin and Zosyn. CT abd/pelvis completed and consistent with colitis. Review of Systems All systems: negative Constitutional: Reports fever, Reports malaise, Reports sweats, Reports weakness, Denies chills Eyes: denies blurred vision, denies pain Ears, nose, mouth and throat: Denies headache, Denies sore throat Cardiovascular: Denies chest pain, Denies shortness of breath Respiratory: Denies cough Gastrointestinal: Reports abdominal pain, Denies diarrhea, Denies nausea, Denies vomiting Genitourinary: Denies dysuria, Denies hematuria Musculoskeletal: Denies myalgias Integumentary: Denies pruritus, Denies rash Neurological: Denies numbness, Denies weakness Psychiatric: Reports anxiety, Reports depression Endocrine: Denies fatigue, Denies weight change Past Medical History Past Medical History: Rheumatoid Arthritis (RA) Additional Past Medical History / Comment(s): blind, juvenile RA History of Any Multi-Drug Resistant Organisms: None Reported Additional Past Surgical History / Comment(s): mulitple joint surgeries, eye surgery Past Anesthesia/Blood Transfusion Reactions: No Reported Reaction Past Psychological History: Anxiety, Depression Smoking Status: Former smoker Past Drug Use History: Marijuana - Past Family History Father Family Medical History: No Reported History Additional Family Medical History / Comment(s): ETOH Mother Family Medical History: No Reported History Medications and Allergies Home Medications Medication Instructions Recorded Confirmed Type Clopidogrel [Plavix] 75 mg PO DAILY 05/12/19 06/05/19 History Estradiol [Estrace] 1 mg PO DAILY 05/12/19 06/05/19 History Potassium Chloride [Klor-Con 10] 10 meq PO DAILY 05/12/19 06/05/19 History Sodium Chloride 5% Ophth Oint 1 applic BOTH EYES HS 05/12/19 06/05/19 History [Carlos 128] predniSONE 17.5 mg PO DAILY 05/12/19 06/05/19 History traZODone HCL 100 mg PO DAILY 05/12/19 06/05/19 History traZODone HCL [Desyrel] 200 mg PO HS 05/12/19 06/05/19 History ceFAZolin [Kefzol] 2 gm IVP Q8HR #84 vial 05/17/19 06/05/19 Rx fentaNYL 100MCG/HR PATCH 1 patch TRANSDERM Q72H #1 patch 05/18/19 06/05/19 Rx [Duragesic 100MCG/HR] Acetaminophen [Tylenol] 650 mg PO Q6H PRN 06/05/19 06/05/19 History Famotidine 20 mg PO HS 06/05/19 06/05/19 History HYDROcodone/APAP 10-325MG [[place] 1 tab PO Q6H PRN 06/05/19 06/05/19 History 10-325] Loperamide [Imodium] 2 mg PO Q2H PRN MDD 4 CAPS/24HRS 06/05/19 06/05/19 History Ondansetron [Zofran] 4 mg PO Q6H PRN 06/05/19 06/05/19 History Phenergan Im Raiza 25mg/Ml 25 mg IM Q8H PRN 06/05/19 History S.boulardii/B.coagulans/Fos 942 mg PO BID 06/05/19 06/05/19 History [Diff-Stat 471 mg Capsule] Allergies Allergy/AdvReac Type Severity Reaction Status Date / Time ibuprofen AdvReac Nausea & Verified 06/05/19 22:00 Vomiting Physical Exam Vitals: Vital Signs Temp Pulse Resp BP Pulse Ox 06/06/19 14:38 99 F 117 H 18 115/76 93 L 06/06/19 07:47 99.9 F H 106 H 16 155/85 92 L Intake and Output 06/06/19 06/06/19 06/07/19 14:59 22:59 06:59 Intake Total 1390 Balance 1390 Intake: IV 1390 Piperacillin-Tazobactam 3 100 .375 gm In Sodium Chloride 0.9% 100 ml @ 25 mls/hr IVPB Q8HR [facility] Rx# :[id number] Sodium Chloride 0.9% 1, 1040 000 ml @ 130 mls/hr IV . Q7H42M [facility] Rx#:[id number] Vancomycin 750 mg In 250 Sodium Chloride 0.9% 250 ml @ 125 mls/hr IVPB Q16H [facility] Rx#:[id number] Other: Voiding Method Incontinent # Voids 1 # Bowel Movements 1 General: well nourished, well developed, in mild distress. Vitals reviewed Eyes: PERRL, EOMI, conjunctiva normal HENT: normocephalic, mucus membranes moist Neck: supple, no JVD Lungs: normal respiratory effort, no wheezes or rales CV: Regular rate and rhythm, no murmur. No edema Abdomen: soft. generalized tenderness. no organomegaly Lymph: no cervical or axillary LAD Skin: warm and dry. Neuro: alert and oriented x3, no focal deficits. Tearful and anxious Results CBC & Chem 7: 06/06/19 09:35 06/06/19 09:35 Labs: Abnormal Lab Results - Last 24 Hours (Table) 06/06/19 06/06/19 Range/Units 09:35 09:35 WBC 24.3 H (3.8-10.6) k/uL RBC 3.43 L (3.80-5.40) m/uL Hgb 10.1 L (11.4-16.0) gm/dL Hct 32.8 L (34.0-46.0) % MCHC 30.7 L (31.0-37.0) g/dL Neutrophils # 22.9 H (1.3-7.7) k/uL Lymphocytes # 0.6 L (1.0-4.8) k/uL Sodium 136 L (137-145) mmol/L Carbon Dioxide 18 L (22-30) mmol/L Glucose 64 L (74-99) mg/dL Calcium 7.1 L (8.4-10.2) mg/dL Microbiology - Last 24 Hours (Table) 06/05/19 22:13 Catheter Tip Culture - Preliminary Catheter Tip Thrombosis Risk Factor Assmnt - Choose All That Apply Any of the Below Risk Factors Present?: Yes Other Risk Factors: Yes Each Risk Factor Represents 2 Points: Age 61-74 years Thrombosis Risk Factor Assessment Total Risk Factor Score: 2 Thrombosis Risk Factor Assessment Level: Low Risk Assessment and Plan (1) Severe sepsis Current Visit: Yes Status: Acute Code(s): A41.9 - SEPSIS, UNSPECIFIED ORGANISM; R65.20 - SEVERE SEPSIS WITHOUT SEPTIC SHOCK SNOMED Code(s): 54074001 (2) Moderate recurrent major depression Current Visit: Yes Status: Acute Code(s): F33.1 - MAJOR DEPRESSIVE DISORDER, RECURRENT, MODERATE SNOMED Code(s): 981171586 (3) Rheumatoid arthritis Current Visit: Yes Status: Acute Code(s): M06.9 - RHEUMATOID ARTHRITIS, UNSPECIFIED SNOMED Code(s): 88209898 (4) Chronic pain Current Visit: Yes Status: Acute Code(s): G89.29 - OTHER CHRONIC PAIN SNOMED Code(s): 71559939 (5) Colitis Current Visit: Yes Status: Acute Code(s): K52.9 - NONINFECTIVE GASTROENTERITIS AND COLITIS, UNSPECIFIED SNOMED Code(s): 66013742 (6) Fever Current Visit: Yes Status: Acute Code(s): R50.9 - FEVER, UNSPECIFIED SNOMED Code(s): 216969256 Plan: 1. Severe sepsis, secondary to colitis vs PICC associated infection. ID consulted. PICC culture with no growth at 24 hrs. Vancomycin per ID 2. Abdominal pain. Suspect secondary to colitis. Treat underlying cause. Surgery consulted for further recs 3. Chronic pain. Continue fentanyl patch. [place] for breakthrough 4. Major depressive disorder. Anxiety. Lexapro
[2019-06-07] MEDS: ACETAMINOPHEN TAB 500 MG TAB PO SCH ×3 (01:34→20:34)
[2019-06-07] MEDS: SODIUM CHLORIDE 0.9% 1,000 ML IV SCH ×4 (05:19→20:35)
[2019-06-07 07:31] LABS: Basophils # (A) 0.1 k/uL (0-0.2); Basophils % (A) 0 %; Eosinophils # (A) 0.1 k/uL (0-0.7); Eosinophils % (A) 1 %; HCT 28.9 % (34.0-46.0); HGB 8.8 gm/dL (11.4-16.0); Hypochromasia Marked; Lymphocytes # (A) 0.9 k/uL (1.0-4.8); Lymphocytes % (A) 5 %; MCH 29.1 pg (25.0-35.0); MCHC 30.5 g/dL (31.0-37.0); MCV 95.3 fL (80.0-100.0); Mean Platelet Volume 7.2; Monocytes # (A) 0.6 k/uL (0-1.0); Monocytes % (A) 4 %; Neutrophils # (A) 16.6 k/uL (1.3-7.7); Neutrophils % (A) 90 %; Platelet Count 195 k/uL (150-450); RBC 3.04 m/uL (3.80-5.40); RDW 15.8 % (11.5-15.5); WBC 18.4 k/uL (3.8-10.6)
[2019-06-07 07:52] LABS: African American GFR (CKD) >90 (>60 ml/min/1.73 sqM); Anion Gap 8 mmol/L; Blood Urea Nitrogen 9 mg/dL (7-17); Calcium 6.7 mg/dL (8.4-10.2); Carbon Dioxide 20 mmol/L (22-30); Chloride 110 mmol/L (98-107); Glucose 75 mg/dL (74-99); Non-African American GFR(CKD) 80 (>60 ml/min/1.73 sqM); Potassium 3.5 mmol/L (3.5-5.1); Sodium 138 mmol/L (137-145)
[2019-06-07] MEDS: ESCITALOPRAM 20 MG TAB PO SCH (09:03)
[2019-06-07] MEDS: CLOPIDOGREL 75 MG TAB PO SCH (09:03)
[2019-06-07] MEDS: ENOXAPARIN 40 MG/0.4 ML SYRINGE SQ SCH (09:04)
[2019-06-07] MEDS: PANTOPRAZOLE 40 MG/10 ML VIAL IV SCH (09:04)
[2019-06-07] MEDS ORDERED: DOCUSATE 100 MG CAP PO SCH (11:15)
[2019-06-07] MEDS: ONDANSETRON 4 MG/2 ML VIAL IVP PRN ×2 (11:50→17:51)
[2019-06-07] MEDS: VANCOMYCIN 750 MG in SODIUM CHLORIDE 0.9% 250 ML IVPB SCH (13:46)
--- NOTE | 2019-06-07 14:15 | P.GSCN ---
History of Present Illness Consult date: 06/07/19 Reason for Consult: abdominal pain Requesting physician: Gerald Pearl History of present illness: CHIEF COMPLAINT: Abdominal pain HISTORY OF PRESENT ILLNESS: 63-year-old female admitted to the hospital secondary to bacteremia. Patient has been complaining of abdominal pain, hence surgery consultation was placed. Patient was examined at the bedside with Dr. Martin. Patient reports generalized abdominal pain. Patient reports having loose stools yesterday. She reports some nausea. Denies emesis. PAST MEDICAL HISTORY: See list. PAST SURGICAL HISTORY: See list. SOCIAL HISTORY: No illicit drug use. REVIEW OF SYSTEMS: CONSTITUTIONAL: Denies fever or chills. HEENT: Denies blurred vision, vision changes, or eye pain. Denies hemoptysis CARDIOVASCULAR: Denies chest pain or pressure. RESPIRATORY: No shortness of breath. GASTROINTESTINAL: Refer to HPI for pertinent findings HEMATOLOGIC: Denies bleeding disorders. GENITOURINARY: Denies any blood in urine. SKIN: Denies pruitis. Denies rash. PHYSICAL EXAM: VITAL SIGNS: Reviewed. GENERAL: Well-developed in no acute distress. HEENT: No sclera icterus. Extraocular movements grossly intact. Moist buccal mucosa. Head is atraumatic, normocephalic. ABDOMEN: Soft. Nondistended. Mild tenderness with palpation. NEUROLOGIC: Alert and oriented. Cranial nerves II through XII grossly intact. LABORATORY DATA: WBC 18.4. Hemoglobin 8.8. Platelet count 195. C. diff negative IMAGING: CT abdomen and pelvis: Fairly long segment of moderate acute colitis from the cecum to the rectum. ASSESSMENT: 1. Abdominal pain 2. Bacteremia 3. Acute colitis PLAN: Clear liquid diet. Bowel rest IV antibiotics per infectious disease Continue supportive management. No surgical intervention recommended at this time Thank you for this consult. We will continue to follow with you. Nurse practitioner note has been reviewed by physician. Signing provider agrees with the documented findings, assessment, and plan of care. Past Medical History Past Medical History: Rheumatoid Arthritis (RA) Additional Past Medical History / Comment(s): blind, juvenile RA History of Any Multi-Drug Resistant Organisms: None Reported Additional Past Surgical History / Comment(s): mulitple joint surgeries, eye surgery Past Anesthesia/Blood Transfusion Reactions: No Reported Reaction Past Psychological History: Anxiety, Depression Smoking Status: Former smoker Past Drug Use History: Marijuana - Past Family History Father Family Medical History: No Reported History Additional Family Medical History / Comment(s): ETOH Mother Family Medical History: No Reported History Medications and Allergies Home Medications Medication Instructions Recorded Confirmed Type Clopidogrel [Plavix] 75 mg PO DAILY 05/12/19 06/05/19 History Estradiol [Estrace] 1 mg PO DAILY 05/12/19 06/05/19 History Potassium Chloride [Klor-Con 10] 10 meq PO DAILY 05/12/19 06/05/19 History Sodium Chloride 5% Ophth Oint 1 applic BOTH EYES HS 05/12/19 06/05/19 History [Carlos 128] predniSONE 17.5 mg PO DAILY 05/12/19 06/05/19 History traZODone HCL 100 mg PO DAILY 05/12/19 06/05/19 History traZODone HCL [Desyrel] 200 mg PO HS 05/12/19 06/05/19 History ceFAZolin [Kefzol] 2 gm IVP Q8HR #84 vial 05/17/19 06/05/19 Rx fentaNYL 100MCG/HR PATCH 1 patch TRANSDERM Q72H #1 patch 05/18/19 06/05/19 Rx [Duragesic 100MCG/HR] Acetaminophen [Tylenol] 650 mg PO Q6H PRN 06/05/19 06/05/19 History Famotidine 20 mg PO HS 06/05/19 06/05/19 History HYDROcodone/APAP 10-325MG [[place] 1 tab PO Q6H PRN 06/05/19 06/05/19 History 10-325] Loperamide [Imodium] 2 mg PO Q2H PRN MDD 4 CAPS/24HRS 06/05/19 06/05/19 History Ondansetron [Zofran] 4 mg PO Q6H PRN 06/05/19 06/05/19 History Phenergan Im Raiza 25mg/Ml 25 mg IM Q8H PRN 06/05/19 History S.boulardii/B.coagulans/Fos 942 mg PO BID 06/05/19 06/05/19 History [Diff-Stat 471 mg Capsule] Allergies Allergy/AdvReac Type Severity Reaction Status Date / Time ibuprofen AdvReac Nausea & Verified 06/05/19 22:00 Vomiting Surgical - Exam Vital Signs Temp Pulse Resp BP Pulse Ox 98.6 F 100 20 157/95 98 06/05/19 19:35 06/05/19 19:35 06/05/19 19:35 06/05/19 19:35 06/05/19 19:35 Results - Labs 06/07/19 06:56 06/07/19 06:56 Abnormal Lab Results - Last 24 Hours (Table) 06/07/19 06/07/19 Range/Units 06:56 06:56 WBC 18.4 H (3.8-10.6) k/uL RBC 3.04 L (3.80-5.40) m/uL Hgb 8.8 L (11.4-16.0) gm/dL Hct 28.9 L (34.0-46.0) % MCHC 30.5 L (31.0-37.0) g/dL RDW 15.8 H (11.5-15.5) % Neutrophils # 16.6 H (1.3-7.7) k/uL Lymphocytes # 0.9 L (1.0-4.8) k/uL Chloride 110 H (98-107) mmol/L Carbon Dioxide 20 L (22-30) mmol/L Calcium 6.7 L (8.4-10.2) mg/dL Microbiology - Last 24 Hours (Table) 06/06/19 11:28 Blood Culture - Preliminary Blood No Growth after 24 hours 06/05/19 22:13 Catheter Tip Culture - Preliminary Catheter Tip Diabetes panel 06/07/19 Range/Units 06:56 Sodium 138 (137-145) mmol/L Potassium 3.5 (3.5-5.1) mmol/L Chloride 110 H (98-107) mmol/L Carbon Dioxide 20 L (22-30) mmol/L BUN 9 (7-17) mg/dL Creatinine 0.80 (0.52-1.04) mg/dL Glucose 75 (74-99) mg/dL Calcium 6.7 L (8.4-10.2) mg/dL Calcium panel 06/07/19 Range/Units 06:56 Calcium 6.7 L (8.4-10.2) mg/dL Pituitary panel 06/07/19 Range/Units 06:56 Sodium 138 (137-145) mmol/L Potassium 3.5 (3.5-5.1) mmol/L Chloride 110 H (98-107) mmol/L Carbon Dioxide 20 L (22-30) mmol/L BUN 9 (7-17) mg/dL Creatinine 0.80 (0.52-1.04) mg/dL Glucose 75 (74-99) mg/dL Calcium 6.7 L (8.4-10.2) mg/dL Adrenal panel 06/07/19 Range/Units 06:56 Sodium 138 (137-145) mmol/L Potassium 3.5 (3.5-5.1) mmol/L Chloride 110 H (98-107) mmol/L Carbon Dioxide 20 L (22-30) mmol/L BUN 9 (7-17) mg/dL Creatinine 0.80 (0.52-1.04) mg/dL Glucose 75 (74-99) mg/dL Calcium 6.7 L (8.4-10.2) mg/dL
--- NOTE | 2019-06-07 14:21 | PN ---
PROGRESS NOTE DATE OF SERVICE: 06/07/2019 REASON FOR FOLLOWUP: Fever and a question of PICC line infection and colitis. INTERVAL HISTORY: The patient did have a fever this morning of 103. The patient overall fever pattern has improved since then. The patient has been breathing comfortably. Patient denies having any chest pain or shortness of breath or cough. Denies any abdominal pain and the patient denies any worsening diarrhea. PHYSICAL EXAMINATION: Blood pressure is 91/54 with a pulse of 106, temperature of 99.9, she is 94% on room air. General description is middle-aged female, lying in bed in no distress. RESPIRATORY SYSTEM: Unlabored breathing, clear to auscultation anteriorly. HEART: S1, S2. Regular rate and rhythm. ABDOMEN: Soft, no tenderness. EXTREMITIES: No edema to the feet. Examination the right hand overall with no swelling, no redness. LABS: Hemoglobin 8.8, white count of 18.4. Stool for C difficile colitis came back negative. Blood culture has been negative. Catheter has been negative so far. DIAGNOSTIC IMPRESSION AND PLAN: Patient admitted to the hospital with a fever with concern for possible PICC infection which has been discontinued. The patient also had significant diarrhea and a CT has been suggestive of colitis. Suspicion is high for Clostridium difficile as the patient has been on antibiotic and a assisted resident. Patient at this point covered with p.o. vancomycin and IV vanc will be continued while waiting for the culture to finalize as the patient has shown some clinical improvement. Will hold on Zosyn or a gram- negative at this point and continue supportive care. MMODL / IJN: [id number] /
[2019-06-07] MEDS: SENNOSIDES-DOCUSATE SODIUM 1 EACH TAB PO SCH ×2 (14:43→20:39)
[2019-06-07] MEDS ORDERED: Potassium Replacement Protocol 1 EACH MISC MISCELLANE PRN (17:31)
--- NOTE | 2019-06-07 17:34 | P.PN ---
Subjective Progress Note Date: 06/07/19 Patient is a 63-year-old female with PMH of rheumatoid arthritis, depression who was recently admitted for right hand abscess and discharged with PICC and 4-week course of cefazolin. Pt initially did well and had followed with ID on Tuesday with no noted complications. Tuesday pt developed chills, malaise, as well as watery diarrhea. Pt also complaining of cramping severe abdominal pain. In the ED, her vitals were stable, WBC 24k, cr at baseline. With concern for possible PICC infection, her PICC was removed and tip cultured. Patient was started on vancomycin and Zosyn. CT abd/pelvis completed and consistent with colitis. 06/07/2019 complaining of constipation, abdominal pain. States difficulty sle eping. Maintained on IV vancomycin, blood cultures reporting no growth at 24 hours, PICC line catheter tip reporting no growth at 24 hours. Stool for C. difficile negative. T-max 103.9, WBC trending down currently 18.4. Evaluated by surgery, recommending clear liquid diet/bowel rest. Denies chest pain, palpitations or increased shortness of breath. Objective - Vital Signs Vital signs: Vital Signs Temp 98.7 F 06/07/19 15:00 Pulse 92 06/07/19 15:00 Resp 16 06/07/19 15:00 BP 102/67 06/07/19 15:00 Pulse Ox 95 06/07/19 15:00 Intake & Output 06/06/19 06/07/19 06/07/19 18:59 06:59 18:59 Intake Total 1390 Balance 1390 Intake: IV 1390 Piperacillin-Tazobactam 3 100 .375 gm In Sodium Chloride 0.9% 100 ml @ 25 mls/hr IVPB Q8HR [facility] Rx# :[id number] Sodium Chloride 0.9% 1, 1040 000 ml @ 130 mls/hr IV . Q7H42M [facility] Rx#:[id number] Vancomycin 750 mg In 250 Sodium Chloride 0.9% 250 ml @ 125 mls/hr IVPB Q16H [facility] Rx#:[id number] Other: Voiding Method Incontinent # Voids 1 1 # Bowel Movements 1 1 - Exam General: well nourished, well developed, in mild distress. Teary-eyed Eyes: PERRL, EOMI, conjunctiva normal HENT: normocephalic, mucus membranes moist Neck: supple, no JVD Lungs: normal respiratory effort, no wheezes or rales CV: Regular rate and rhythm, no murmur. No edema Abdomen: soft. Periumbilical tenderness. no organomegaly Lymph: no cervical or axillary LAD Skin: warm and dry. Neuro: alert and oriented x3, no focal deficits. Tearful and anxious Microbiology 06/06/19 11:28 Blood Blood Culture - Preliminary No Growth after 24 hours 06/05/19 22:13 Catheter Tip Catheter Tip Culture - Preliminary - Labs CBC & Chem 7: 06/07/19 06:56 06/07/19 06:56 Labs: Abnormal Lab Results - Last 24 Hours (Table) 06/07/19 06/07/19 Range/Units 06:56 06:56 WBC 18.4 H (3.8-10.6) k/uL RBC 3.04 L (3.80-5.40) m/uL Hgb 8.8 L (11.4-16.0) gm/dL Hct 28.9 L (34.0-46.0) % MCHC 30.5 L (31.0-37.0) g/dL RDW 15.8 H (11.5-15.5) % Neutrophils # 16.6 H (1.3-7.7) k/uL Lymphocytes # 0.9 L (1.0-4.8) k/uL Chloride 110 H (98-107) mmol/L Carbon Dioxide 20 L (22-30) mmol/L Calcium 6.7 L (8.4-10.2) mg/dL Microbiology - Last 24 Hours (Table) 06/06/19 11:28 Blood Culture - Preliminary Blood No Growth after 24 hours 06/05/19 22:13 Catheter Tip Culture - Preliminary Catheter Tip Assessment and Plan Assessment: (1) Severe sepsis secondary to colitis, possible PICC line associated infection, culture pending. Current Visit: Yes Status: Acute Code(s): A41.9 - SEPSIS, UNSPECIFIED ORGANISM; R65.20 - SEVERE SEPSIS WITHOUT SEPTIC SHOCK SNOMED Code(s): 65315325 (2) Moderate recurrent major depression Current Visit: Yes Status: Acute Code(s): F33.1 - MAJOR DEPRESSIVE DISORDER, RECURRENT, MODERATE SNOMED Code(s): 795826351 (3) Rheumatoid arthritis Current Visit: Yes Status: Acute Code(s): M06.9 - RHEUMATOID ARTHRITIS, UNSPECIFIED SNOMED Code(s): 42766077 (4) Chronic pain Current Visit: Yes Status: Acute Code(s): G89.29 - OTHER CHRONIC PAIN SNOMED Code(s): 37925915 (5) Colitis Current Visit: Yes Status: Acute Code(s): K52.9 - NONINFECTIVE GASTROENTERITIS AND COLITIS, UNSPECIFIED SNOMED Code(s): 83771637 (6) Fever Current Visit: Yes Status: Acute Code(s): R50.9 - FEVER, UNSPECIFIED SNOMED Code(s): 200058179 Plan: Continue on current medication regime ,monitoring and symptomatic treatment. Antidepressant changed to Zoloft, as per patient's request. Colace and Senokot-S added to med regime along with melatonin. No benzos recommended at this time. Maintain IV antibiotics as per infectious disease. PICC line cu lture pending. Evaluated by surgery with recommendations noted and appreciated. The impression and plan of care has been dictated as directed. : I performed a history and examination of this patient, discussed the same with the dictator. I agree with the dictator's note ,documented as a scribe. Any additional findings or plans will be noted.
[2019-06-07] MEDS: CHOLESTYRAMINE (WITH SUGAR) 4 GM PACKET PO SCH (20:38)
[2019-06-07] MEDS: traZODone HCL 100 MG TAB PO SCH (20:39)
[2019-06-07] MEDS: MELATONIN 3 MG TABLET PO SCH (20:39)
[2019-06-07] MEDS: DOCUSATE 100 MG CAP PO SCH (20:39)
[2019-06-08] MEDS: CHERRY FLAVOR 60 ML BOTTLE PO SCH ×4 (00:44→18:27)
[2019-06-08] MEDS: ACETAMINOPHEN TAB 500 MG TAB PO SCH ×3 (00:44→15:50)
[2019-06-08] MEDS: VANCOMYCIN ORAL SOLUTION 250 MG/5 ML BOTTLE PO SCH ×4 (00:44→18:26)
[2019-06-08] MEDS: SODIUM CHLORIDE 0.9% 1,000 ML IV SCH ×4 (00:45→18:27)
[2019-06-08] MEDS ORDERED: VANCOMYCIN TROUGH DUE 1 EACH MISC MISCELLANE ONE (05:00)
[2019-06-08 05:45] LABS: Basophils # (A) 0.1 k/uL (0-0.2); Basophils % (A) 1 %; Eosinophils # (A) 0.2 k/uL (0-0.7); Eosinophils % (A) 2 %; HCT 29.2 % (34.0-46.0); HGB 8.8 gm/dL (11.4-16.0); Hypochromasia Marked; Lymphocytes # (A) 0.9 k/uL (1.0-4.8); Lymphocytes % (A) 9 %; MCHC 30.2 g/dL (31.0-37.0); MCV 96.2 fL (80.0-100.0); Mean Platelet Volume 7.3; Monocytes # (A) 0.3 k/uL (0-1.0); Monocytes % (A) 3 %; Neutrophils # (A) 8.4 k/uL (1.3-7.7); Neutrophils % (A) 84 %; Platelet Count 213 k/uL (150-450); RBC 3.03 m/uL (3.80-5.40); RDW 15.5 % (11.5-15.5)
[2019-06-08 06:05] LABS: African American GFR (CKD) >90 (>60 ml/min/1.73 sqM); Anion Gap 5 mmol/L; Blood Urea Nitrogen 5 mg/dL (7-17); Carbon Dioxide 19 mmol/L (22-30); Chloride 115 mmol/L (98-107); Glucose 86 mg/dL (74-99); Non-African American GFR(CKD) >90 (>60 ml/min/1.73 sqM); Potassium 3.4 mmol/L (3.5-5.1); Sodium 139 mmol/L (137-145)
[2019-06-08] MEDS: DOCUSATE 100 MG CAP PO SCH ×2 (09:20→23:06)
[2019-06-08] MEDS: CLOPIDOGREL 75 MG TAB PO SCH (09:20)
[2019-06-08] MEDS: PANTOPRAZOLE 40 MG/10 ML VIAL IV SCH (09:20)
[2019-06-08] MEDS: SERTRALINE 100 MG TAB PO SCH (09:20)
[2019-06-08] MEDS: SENNOSIDES-DOCUSATE SODIUM 1 EACH TAB PO SCH ×2 (09:20→23:06)
[2019-06-08] MEDS: ENOXAPARIN 40 MG/0.4 ML SYRINGE SQ SCH (09:21)
[2019-06-08] MEDS: CHOLESTYRAMINE (WITH SUGAR) 4 GM PACKET PO SCH (09:21)
--- NOTE | 2019-06-08 10:35 | P.PN ---
Subjective Progress Note Date: 06/08/19 CHIEF COMPLAINT: Abdominal pain HISTORY OF PRESENT ILLNESS: Patient examined this morning at the bedside. She is sitting up in the chair. She reports having a few sips of her clear liquids for breakfast. She reports nausea. She denies any emesis. She denies abdominal pain. She states her belly feels firm. She reports passing flatus and having a bowel movement overnight. WBC 10.0. Hemoglobin 8.8. C. diff negative. PHYSICAL EXAM: VITAL SIGNS: Reviewed. GENERAL: Well-developed in no acute distress. HEENT: No sclera icterus. Extraocular movements grossly intact. Moist buccal mucosa. Head is atraumatic, normocephalic. ABDOMEN: Soft. Mildly distended. Nontender. No signs of peritonitis. NEUROLOGIC: Alert and oriented. Cranial nerves II through XII grossly intact. ASSESSMENT: 1. Abdominal pain 2. Bacteremia 3. Acute colitis PLAN: Continue clear liquid diet. Patient does not want diet advanced at this time. IV antibiotics per infectious disease Continue supportive management. No surgical intervention recommended at this time Nurse practitioner note has been reviewed by physician. Signing provider agrees with the documented findings, assessment, and plan of care. Objective - Vital Signs Vital signs: Vital Signs Temp 98.5 F 06/08/19 07:34 Pulse 99 06/08/19 07:34 Resp 16 06/08/19 07:34 BP 125/80 06/08/19 07:34 Pulse Ox 93 L 06/08/19 07:34 Intake & Output 06/07/19 06/08/19 06/08/19 18:59 06:59 18:59 Intake Total 1610 Balance 1610 Intake: Intake, IV Titration 1560 Amount Vancomycin 750 mg In 1560 Sodium Chloride 0.9% 250 ml @ 125 mls/hr IVPB Q16H [facility] Rx#:[id number] Oral 50 Other: Voiding Method Incontinent # Voids 1 2 # Bowel Movements 1 - Labs CBC & Chem 7: 06/08/19 05:37 06/08/19 05:37 Labs: Abnormal Lab Results - Last 24 Hours (Table) 06/08/19 06/08/19 Range/Units 05:37 05:37 RBC 3.03 L (3.80-5.40) m/uL Hgb 8.8 L (11.4-16.0) gm/dL Hct 29.2 L (34.0-46.0) % MCHC 30.2 L (31.0-37.0) g/dL Neutrophils # 8.4 H (1.3-7.7) k/uL Lymphocytes # 0.9 L (1.0-4.8) k/uL Potassium 3.4 L (3.5-5.1) mmol/L Chloride 115 H (98-107) mmol/L Carbon Dioxide 19 L (22-30) mmol/L BUN 5 L (7-17) mg/dL Calcium 7.0 L (8.4-10.2) mg/dL Microbiology - Last 24 Hours (Table) 06/05/19 22:13 Catheter Tip Culture - Final Catheter Tip 06/06/19 11:28 Blood Culture - Preliminary Blood No Growth after 24 hours
--- NOTE | 2019-06-08 15:47 | P.PN ---
Subjective Progress Note Date: 06/08/19 Patient is a 63-year-old female with PMH of rheumatoid arthritis, depression who was recently admitted for right hand abscess and discharged with PICC and 4-week course of cefazolin. Pt initially did well and had followed with ID on Tuesday with no noted complications. Tuesday pt developed chills, malaise, as well as watery diarrhea. Pt also complaining of cramping severe abdominal pain. In the ED, her vitals were stable, WBC 24k, cr at baseline. With concern for possible PICC infection, her PICC was removed and tip cultured. Patient was started on vancomycin and Zosyn. CT abd/pelvis completed and consistent with colitis. 06/07/2019 complaining of constipation, abdominal pain. States difficulty sle eping. Maintained on IV vancomycin, blood cultures reporting no growth at 24 hours, PICC line catheter tip reporting no growth at 24 hours. Stool for C. difficile negative. T-max 103.9, WBC trending down currently 18.4. Evaluated by surgery, recommending clear liquid diet/bowel rest. Denies chest pain, palpitations or increased shortness of breath. 06/08/2019 depressed, crying, discussing prior multiple emotional traumas. Clinically doing better today, no abdominal pain, up in chair, positive bowel movement last night.. Positive nausea, Denies vomiting. Afebrile, WBC within normal limits. Catheter tip culture reporting no growth. Potassium 3.5. Objective - Vital Signs Vital signs: Vital Signs Temp 98.5 F 06/08/19 07:34 Pulse 99 06/08/19 07:34 Resp 16 06/08/19 07:34 BP 125/80 06/08/19 07:34 Pulse Ox 93 L 06/08/19 07:34 Intake & Output 06/07/19 06/08/19 06/08/19 18:59 06:59 18:59 Intake Total 1610 Balance 1610 Intake: Intake, IV Titration 1560 Amount Vancomycin 750 mg In 1560 Sodium Chloride 0.9% 250 ml @ 125 mls/hr IVPB Q16H [facility] Rx#:[id number] Oral 50 Other: Voiding Method Incontinent Bedside Commode Incontinent # Voids 1 2 # Bowel Movements 1 - Exam General: well nourished, well developed, in mild distress. Sitting up in chair, Teary-eyed Eyes: PERRL, EOMI, conjunctiva normal HENT: normocephalic, mucus membranes moist Neck: supple, no JVD Lungs: normal respiratory effort, no wheezes or rales CV: Regular rate and rhythm, no murmur. No edema Abdomen: soft. Mildly distended, Nontender. no organomegaly. Positive bowel sounds Lymph: no cervical or axillary LAD Skin: warm and dry. Neuro: alert and oriented x3, no focal deficits. Microbiology 06/06/19 11:28 Blood Blood Culture - Preliminary No Growth after 48 hours 06/05/19 22:13 Catheter Tip Catheter Tip Culture - Final - Labs CBC & Chem 7: 06/08/19 05:37 06/08/19 05:37 Labs: Abnormal Lab Results - Last 24 Hours (Table) 06/08/19 06/08/19 Range/Units 05:37 05:37 RBC 3.03 L (3.80-5.40) m/uL Hgb 8.8 L (11.4-16.0) gm/dL Hct 29.2 L (34.0-46.0) % MCHC 30.2 L (31.0-37.0) g/dL Neutrophils # 8.4 H (1.3-7.7) k/uL Lymphocytes # 0.9 L (1.0-4.8) k/uL Potassium 3.4 L (3.5-5.1) mmol/L Chloride 115 H (98-107) mmol/L Carbon Dioxide 19 L (22-30) mmol/L BUN 5 L (7-17) mg/dL Calcium 7.0 L (8.4-10.2) mg/dL Microbiology - Last 24 Hours (Table) 06/06/19 11:28 Blood Culture - Preliminary Blood No Growth after 48 hours 06/05/19 22:13 Catheter Tip Culture - Final Catheter Tip Assessment and Plan Assessment: (1) Severe sepsis secondary to acute colitis,( PICC line culture reporting no growth) Current Visit: Yes Status: Acute Code(s): A41.9 - SEPSIS, UNSPECIFIED ORGANISM; R65.20 - SEVERE SEPSIS WITHOUT SEPTIC SHOCK SNOMED Code(s): 86141571 (2) Moderate recurrent major depression Current Visit: Yes Status: Acute Code(s): F33.1 - MAJOR DEPRESSIVE DISORDER, RECURRENT, MODERATE SNOMED Code(s): 457423002 (3) Rheumatoid arthritis Current Visit: Yes Status: Acute Code(s): M06.9 - RHEUMATOID ARTHRITIS, UNSPECIFIED SNOMED Code(s): 53163255 (4) Chronic pain Current Visit: Yes Status: Acute Code(s): G89.29 - OTHER CHRONIC PAIN SNOMED Code(s): 35060492 (5) Colitis Current Visit: Yes Status: Acute Code(s): K52.9 - NONINFECTIVE GASTROENTERITIS AND COLITIS, UNSPECIFIED SNOMED Code(s): 42556373 (6) Fever Current Visit: Yes Status: Acute Code(s): R50.9 - FEVER, UNSPECIFIED SNOMED Code(s): 113017113 Plan: Continue on current medication regime ,monitoring and symptomatic treatment. Diet advancement as per surgery. No benzos recommended at this time. Maintain IV antibiotics as per infectious disease. The impression and plan of care has been dictated as directed. : I performed a history and examination of this patient, discussed the same with the dictator. I agree with the dictator's note ,documented as a scribe. Any additional findings or plans will be noted.
--- NOTE | 2019-06-08 17:26 | PN ---
PROGRESS NOTE DATE OF SERVICE: 06/08/2019. REASON FOR FOLLOWUP: 1. Colitis, likely C difficile. 2. Question of a PICC line infection, ruled out. INTERVAL HISTORY: The patient is currently afebrile. The patient is breathing comfortably. The patient overall is still not feeling well. No chest pain, shortness of breath or cough. No nausea, no vomiting. Still having diarrhea. No blood or mucus in the stool. PHYSICAL EXAMINATION: Blood pressure 125/80 with a pulse of 99, temperature 98.5. She is 93% on room air. General description is a middle-aged female lying in bed in no distress. RESPIRATORY SYSTEM: Unlabored breathing. Clear to auscultation anteriorly. HEART: S1, S2. Regular rate and rhythm. ABDOMEN: Soft. No tenderness. EXTREMITIES: No edema of the feet. Right hand currently with no swelling or redness. LABS: Hemoglobin 8.9, white count normalized to 10.0. BUN of 5, creatinine 0.65. Blood culture negative. Catheter tip negative. Stool for C difficile PCR was requested; unfortunately not done. DIAGNOSTIC IMPRESSION AND PLAN: 1. Patient admitted to hospital with fever and concern for PICC line infection. However, that has been ruled out, as the blood culture as well as catheter tip culture were negative, and the patient's fever resolved without any systemic IV antibiotic therapy. 2. Patient with colitis, significant diarrhea, likely Clostridium difficile. Clinically behaving as C difficile and did respond to the oral vancomycin. That should be continued and monitor clinical course closely. MMODL / IJN: [id number] /
[2019-06-08] MEDS: MELATONIN 3 MG TABLET PO SCH (23:07)
[2019-06-08] MEDS: traZODone HCL 100 MG TAB PO SCH (23:07)
[2019-06-08] MEDS: HYDROcodone/APAP 10-325MG 1 EACH TAB PO PRN (23:07)
[2019-06-09] MEDS: CHOLESTYRAMINE (WITH SUGAR) 4 GM PACKET PO SCH ×3 (01:00→21:13)
[2019-06-09] MEDS: VANCOMYCIN ORAL SOLUTION 250 MG/5 ML BOTTLE PO SCH ×4 (01:19→17:07)
[2019-06-09] MEDS: CHERRY FLAVOR 60 ML BOTTLE PO SCH ×4 (01:19→17:07)
[2019-06-09] MEDS: ACETAMINOPHEN TAB 500 MG TAB PO SCH ×3 (01:21→17:06)
[2019-06-09 06:57] LABS: Basophils % (A) 0 %; Eosinophils # (A) 0.2 k/uL (0-0.7); Eosinophils % (A) 4 %; HCT 26.7 % (34.0-46.0); HGB 8.2 gm/dL (11.4-16.0); Hypochromasia Marked; Lymphocytes # (A) 0.8 k/uL (1.0-4.8); Lymphocytes % (A) 15 %; MCH 29.2 pg (25.0-35.0); MCHC 30.6 g/dL (31.0-37.0); MCV 95.4 fL (80.0-100.0); Monocytes # (A) 0.3 k/uL (0-1.0); Monocytes % (A) 5 %; Neutrophils # (A) 3.7 k/uL (1.3-7.7); Neutrophils % (A) 73 %; Platelet Count 187 k/uL (150-450); RBC 2.79 m/uL (3.80-5.40); RDW 15.6 % (11.5-15.5); WBC 5.1 k/uL (3.8-10.6)
[2019-06-09 07:11] LABS: African American GFR (CKD) >90 (>60 ml/min/1.73 sqM); Anion Gap 7 mmol/L; Blood Urea Nitrogen <2 mg/dL (7-17); Calcium 6.5 mg/dL (8.4-10.2); Carbon Dioxide 21 mmol/L (22-30); Chloride 113 mmol/L (98-107); Glucose 59 mg/dL (74-99); Non-African American GFR(CKD) >90 (>60 ml/min/1.73 sqM); Sodium 141 mmol/L (137-145)
[2019-06-09] MEDS: SERTRALINE 100 MG TAB PO SCH (07:57)
[2019-06-09] MEDS: DOCUSATE 100 MG CAP PO SCH ×2 (07:57→21:12)
[2019-06-09] MEDS: ENOXAPARIN 40 MG/0.4 ML SYRINGE SQ SCH (07:57)
[2019-06-09] MEDS: CLOPIDOGREL 75 MG TAB PO SCH (07:57)
[2019-06-09] MEDS: SENNOSIDES-DOCUSATE SODIUM 1 EACH TAB PO SCH ×2 (07:57→21:12)
[2019-06-09] MEDS: PANTOPRAZOLE 40 MG/10 ML VIAL IV SCH (07:58)
[2019-06-09] MEDS: SODIUM CHLORIDE 0.9% 1,000 ML IV SCH (07:59)
[2019-06-09] MEDS: POTASSIUM CHLORIDE ER 20 MEQ TAB.ER PO SCH ×3 (10:31→17:09)
[2019-06-09] MEDS: ONDANSETRON 4 MG/2 ML VIAL IVP PRN ×2 (11:03→21:25)
--- NOTE | 2019-06-09 12:03 | P.PN ---
Progress Note - Text Progress Note Date: 06/09/19 The patient feels slightly better. She still has some complaints of abdominal discomfort. Her leukocytosis has improved. On exam her vital signs are stable. Her abdomen is soft. There is some minimal tenderness throughout. There is no rebound or guarding. Resolving colitis. Patient will have her diet advanced as tolerated.
--- NOTE | 2019-06-09 12:45 | PN ---
PROGRESS NOTE I am covering for Dr. Pearl. DATE OF SERVICE: 06/09/2019 This 63-year-old woman was admitted with abdominal pain, nausea, diarrhea, nausea, vomiting, and discovered to have features of C difficile colitis. Clinically, patient being treated empirically and the signs of the GI symptoms are improving per Infectious Disease. The patient also had a hand abscess on a PICC line. PICC line infection has been ruled out at this time. The microbiology has been negative including the catheter- tip culture also. The patient complaining of weakness. Patient also complaining of some diminished appetite. Patient takes some marijuana at home for that according to the patient. PAST MEDICAL HISTORY: Reviewed. REVIEW OF SYSTEMS: CARDIOVASCULAR SYSTEM: As mentioned earlier. RESPIRATORY SYSTEM: As mentioned earlier. GI: As mentioned earlier. : No dysuria. NERVOUS SYSTEM: Weakness. CURRENT MEDICATIONS: Current medications are reviewed and include: 1. Tylenol p.r.n. 2. [place] p.r.n. 3. Fox Syrup. 4. Questran. 5. Plavix. 6. Lovenox. 7. Fentanyl patch. 8. Melatonin. 9. Zofran. 10.Protonix. 11.Zoloft. 12.Desyrel. 13.Vancomycin p.o. PHYSICAL EXAM: Patient is alert, oriented x3. Pulse is 89. Blood pressure 158/81, respiration 18, temperature 98.9, pulse ox 92% on room air. HEENT: Conjunctivae normal. NECK: No JVD. CARDIOVASCULAR: S1, S2 muffled. RESPIRATORY: Breath sounds diminished at the bases. A few scattered rhonchi and crackles. ABDOMEN: Soft, obese, nontender. No mass palpable. LEGS: No edema, no swelling. NERVOUS SYSTEM: As mentioned earlier. Moves all 4 limbs. No focal motor or sensory deficits. LYMPHATICS: No lymphadenopathy of the neck, axillae or groin. SKIN: No ulcer, rash or bleeding. JOINTS: No active deforming arthropathy. LABS: WBC 5.1, hemoglobin is 8.2. Sodium 141, potassium 3. ASSESSMENT: 1. Diarrhea, vomiting with possible acute colitis, Clostridium difficile colitis with sepsis present on admission. 2. Hypokalemia. 3. Anemia normocytic, multifactorial, stable currently. 4. History of recent hand infection PICC line. 5. Rheumatoid arthritis. 6. Depression. 7. Increased WBC, present on admission, improving. 8. History of nicotine dependence. 9. History of THC. 10.Anorexia. RECOMMENDATIONS AND DISCUSSION: This 63-year-old woman presented with multiple complex medical issues, we will monitor the patient closely. Continue the current medications. Continue symptomatic treatment. Otherwise at this time I recommend supplement potassium, repeat lytes. Check magnesium. Change fluids to 0.9 with 20 of KCl 60 mL/hour. Portable chest x-ray to rule out possible fluid overload. Otherwise, see further orders for further information. Prognosis guarded. I would also recommend PT, OT evaluation and consult for ECF rehab. Yet the patient says she would like to go home. Further recommendations to follow. We will await for the PT, OT report and Dr. Pearl will follow up on the Tuesday morning. MMODL / MAUREENN: [id number] /
--- NOTE | 2019-06-09 13:04 | XR ---
EXAMINATION TYPE: XR chest 1V portable DATE OF EXAM: 06/09/2019 HISTORY: cough. REFERENCE: Previous study dated 05/17/2019. FINDINGS: The lungs are overinflated. The heart is mildly prominent. There is atelectatic change of b oth lung bases. Both CP angles. I could not exclude small effusions. IMPRESSION: 1. COPD. 2. BIBASILAR ATELECTASIS. 3. I COULD NOT EXCLUDE SMALL, BILATERAL EFFUSIONS.
[2019-06-09] MEDS: 0.9% NACL WITH KCL 20 MEQ/L 1,000 ML IV SCH (13:47)
[2019-06-09] MEDS: DRONABINOL 2.5 MG CAP PO SCH (17:06)
[2019-06-09] MEDS: traZODone HCL 100 MG TAB PO SCH (21:12)
[2019-06-09] MEDS: MELATONIN 3 MG TABLET PO SCH (21:12)
[2019-06-09] MEDS: HYDROcodone/APAP 10-325MG 1 EACH TAB PO PRN (21:16)
--- NOTE | 2019-06-09 23:53 | PN ---
PROGRESS NOTE DATE OF SERVICE: 06/09/2019 REASON FOR FOLLOW UP: Diarrhea, likely C difficile colitis. INTERVAL HISTORY: The patient is currently afebrile. Patient is breathing comfortably. Still complaining of feeling weak and tired. No energy. Denies having any chest pain, shortness of breath, cough, abdominal pain, still having diarrhea. PHYSICAL EXAMINATION: Blood pressure 106/100 with a pulse of 89. Temperature 99.1. She is 94% on room air. General description is a middle-aged female lying in bed in no distress. Respiratory system: Unlabored breathing. Clear to auscultation anteriorly. Heart S1, S2. Regular rate and rhythm. Abdomen soft. No tenderness. LABS: Hemoglobin 8.1, white count of 5.1. BUN of 2, creatinine 0.63. DIAGNOSTIC IMPRESSION AND PLAN: 1. Patient admitted to the hospital with a fever with concern for possible PICC line infection. However, the blood cultures culture negative making it to be less likely. PICC line was already discontinued. 2. Patient did have significant diarrhea and evidence of colitis on CT concerning for infectious colitis. Stool for C difficile is negative. However, the patient has clinically responded to oral vancomycin that will be continued with resolution of fever and white count. Unfortunately stool cultures were not done. 3. Continue supportive care. MMODL / IJN: [id number] /
[2019-06-10] MEDS: CHERRY FLAVOR 60 ML BOTTLE PO SCH ×6 (00:07→23:12)
[2019-06-10] MEDS: VANCOMYCIN ORAL SOLUTION 250 MG/5 ML BOTTLE PO SCH ×6 (00:07→23:12)
[2019-06-10] MEDS: ACETAMINOPHEN TAB 500 MG TAB PO SCH ×3 (02:05→16:52)
[2019-06-10] MEDS: ONDANSETRON 4 MG/2 ML VIAL IVP PRN ×2 (05:19→21:58)
[2019-06-10] MEDS: 0.9% NACL WITH KCL 20 MEQ/L 1,000 ML IV SCH ×2 (05:20→23:12)
[2019-06-10 07:30] LABS: Anisocytosis Slight; Basophils % (A) 1 %; Eosinophils # (A) 0.3 k/uL (0-0.7); Eosinophils % (A) 5 %; HCT 28.7 % (34.0-46.0); HGB 8.8 gm/dL (11.4-16.0); Hypochromasia Marked; Lymphocytes % (A) 18 %; MCH 28.8 pg (25.0-35.0); MCHC 30.8 g/dL (31.0-37.0); MCV 93.6 fL (80.0-100.0); Monocytes # (A) 0.2 k/uL (0-1.0); Monocytes % (A) 4 %; Neutrophils # (A) 3.5 k/uL (1.3-7.7); Neutrophils % (A) 68 %; Platelet Count 214 k/uL (150-450); RBC 3.07 m/uL (3.80-5.40); WBC 5.2 k/uL (3.8-10.6)
[2019-06-10 07:45] LABS: African American GFR (CKD) >90 (>60 ml/min/1.73 sqM); Anion Gap 5 mmol/L; Blood Urea Nitrogen <2 mg/dL (7-17); Calcium 6.8 mg/dL (8.4-10.2); Carbon Dioxide 26 mmol/L (22-30); Chloride 109 mmol/L (98-107); Glucose 74 mg/dL (74-99); Non-African American GFR(CKD) >90 (>60 ml/min/1.73 sqM); Sodium 140 mmol/L (137-145)
[2019-06-10] MEDS: SENNOSIDES-DOCUSATE SODIUM 1 EACH TAB PO SCH ×2 (09:04→22:01)
[2019-06-10] MEDS: DOCUSATE 100 MG CAP PO SCH ×2 (09:04→22:01)
[2019-06-10] MEDS: ENOXAPARIN 40 MG/0.4 ML SYRINGE SQ SCH (09:21)
[2019-06-10] MEDS: CLOPIDOGREL 75 MG TAB PO SCH (09:21)
[2019-06-10] MEDS: PANTOPRAZOLE 40 MG/10 ML VIAL IV SCH (09:21)
[2019-06-10] MEDS: DRONABINOL 2.5 MG CAP PO SCH ×2 (09:21→16:52)
[2019-06-10] MEDS: SERTRALINE 100 MG TAB PO SCH (09:21)
[2019-06-10] MEDS: CHOLESTYRAMINE (WITH SUGAR) 4 GM PACKET PO SCH ×2 (09:31→21:53)
[2019-06-10] MEDS: MAGNESIUM SULFATE-D5W PMX 1 GM in DEXTROSE/WATER 1 100ML.BAG IVPB SCH ×2 (11:55→13:23)
--- NOTE | 2019-06-10 11:58 | P.PN ---
Progress Note - Text Progress Note Date: 06/10/19 The patient's resting comfortably in her bed. She states she has a difficult time going to the bathroom. She is having some small bowel movements however she feels that she is not emptying. The patient is requesting to smoke marijuana. She says it makes her feel better. On exam her vital signs are stable. Her abdomen soft. Resolving colitis. Patient will be discharged home per medicine.
[2019-06-10] MEDS ORDERED: IPRATROPIUM-ALBUTEROL 3 ML NEB INHALATION PRN (14:14)
--- NOTE | 2019-06-10 15:32 | PN ---
PROGRESS NOTE DATE OF SERVICE: 06/10/2019 I am covering for Dr. Pearl. This 63-year-old woman who was admitted with diarrhea, vomiting and possible acute colitis being treated for C difficile colitis empirically, is complaining of diminished appetite. Patient apparently smoking marijuana at home. Marinol 2.5 mg b.i.d. was started yesterday. The chest x-ray was also done which showed some bibasilar atelectasis and COPD also. The patient is rather noncompliant with recommendations per staff. PAST MEDICAL HISTORY: Reviewed. REVIEW OF SYSTEMS: CARDIOVASCULAR system: As mentioned earlier. RESPIRATORY: As mentioned earlier. GI: No nausea or vomiting. : No dysuria. NERVOUS SYSTEM: No numbness, weakness. CURRENT MEDICATIONS: Reviewed and include: 1. Tylenol p.r.n. 2. [place] 10 mg q.6h p.r.n. 3. Fox syrup. 4. Questran 4 g p.o. b.i.d. 5. Plavix 75 mg p.o. daily. 6. Colace 100 mg p.o. b.i.d. 7. Marinol 2.5 mg b.i.d. 8. Lovenox 40 mg subcu daily. 9. Duragesic patch. 10.Melatonin. 11.Zofran. 12.Protonix 40 mg IV daily. 13.Senokot. 14.Zoloft. 15.Desyrel. 16.Vancomycin p.o. 250 mg p.o. q.6 hours. PHYSICAL EXAM: Patient is alert, oriented x3. Pulse 108. Blood pressure 150/92, respirations 17, temperature 99.2, pulse ox 94% on room air. HEENT: Conjunctivae normal. Oral mucosa moist. NECK is no jugular venous distention. No carotid bruit. No lymph node enlargement. CARDIOVASCULAR system: RESPIRATION: Breath sounds diminished in the bases. A few scattered rhonchi and crackles. ABDOMEN: Soft, nontender. No mass palpable. LEGS: No edema. No swelling. NERVOUS SYSTEM: Higher functions as mentioned earlier. Moves all four limbs. No focal motor or sensory deficits. LYMPHATICS: No lymph nodes palpable in the neck, axillae or groin. SKIN: No ulcer, no rash and no bleeding. JOINTS: No active deforming arthropathy. LABS: WBC 5.2, hemoglobin is 8.8. Sodium 140, potassium 4, magnesium is 1. ASSESSMENT: 1. Diarrhea, vomiting, possible acute colitis and acute C difficile colitis with sepsis present on admission. 2. Hypokalemia. 3. Diminished appetite. 4. Anemia, normocytic, multifactorial, stable currently. 5. Severe hypomagnesemia. 6. History of recent hand infection and PICC line. 7. Rheumatoid arthritis. 8. Depression. 9. Increased WBC present on admission, improving. 10.History of nicotine dependence. 11.History of THC. 12.Anorexia. Bibasilar atelectasis. 1. Chronic obstructive pulmonary disease. RECOMMENDATIONS AND DISCUSSION: Recommend to continue current medications, symptomatic treatment. Otherwise, I would also recommend cautious IV fluid administration. Increase the dose of Marinol to 5 mg twice daily. Supplement magnesium. Repeat magnesium and I would also recommend incentive spirometry. Currently the patient is not very compliant with the incentive spirometer and staff. Otherwise, we will continue to monitor. Guarded prognosis because of multiple complex medical issues and further recommendations to follow. A copy of dictation will be forwarded to Dr. Pearl who will follow. MMBLAINEL / IJN: [id number] /
[2019-06-10] MEDS: IPRATROPIUM-ALBUTEROL 3 ML NEB INHALATION SCH (19:11)
[2019-06-10] MEDS: MELATONIN 3 MG TABLET PO SCH (22:01)
[2019-06-10] MEDS: traZODone HCL 100 MG TAB PO SCH (22:01)
--- NOTE | 2019-06-10 22:46 | PN ---
PROGRESS NOTE DATE OF SERVICE: 06/10/2019 REASON FOR FOLLOWUP: Colitis, possible infectious, C. dif. INTERVAL HISTORY: The patient is currently afebrile. Patient has been breathing comfortably. Denies having any chest pain or shortness of breath or cough. No abdominal pain. The patient did have diarrhea but has slowed down. As already mentioned, she was getting two different laxatives which has been discontinued. The right hand currently with no pain, swelling or redness. PHYSICAL EXAMINATION: Blood pressure is 158/88 with a pulse of 92, temperature 98.7, she is 96% on room air. General description is a middle-aged female lying in bed in no distress. Respiratory system: Unlabored breathing, clear to auscultation anteriorly. Heart S1, S2. Regular rate and rhythm. ABDOMEN: Soft. No tenderness. Right hand currently no swelling. No redness. Extremities: No edema of the feet. LABS: Hemoglobin is 8.8, white count 5.2, BUN of 2, creatinine 0.57. DIAGNOSTIC IMPRESSION AND PLAN: 1. Patient with admitted to the hospital with a fever, nausea, vomiting and diarrhea with additional concern for a PICC line infection that was subsequently discontinued. Those cultures have been negative making it to be less likely a PICC line infection. 2. Patient with colitis and significant diarrhea. Clinically behaving as a C difficile though stool for C difficile came back negative. In view of overall clinical improvement, with Vancomycin, recommend to continue to finish a ten day course of therapy and continue supportive care. MMODL / IJN: [id number] /
[2019-06-11] MEDS: ACETAMINOPHEN TAB 500 MG TAB PO SCH ×3 (01:30→17:14)
[2019-06-11] MEDS: HYDROcodone/APAP 10-325MG 1 EACH TAB PO PRN (02:19)
[2019-06-11] MEDS: VANCOMYCIN ORAL SOLUTION 250 MG/5 ML BOTTLE PO SCH ×3 (06:11→17:15)
[2019-06-11] MEDS: ONDANSETRON 4 MG/2 ML VIAL IVP PRN (06:11)
[2019-06-11] MEDS: CHERRY FLAVOR 60 ML BOTTLE PO SCH ×3 (06:11→17:15)
[2019-06-11] MEDS: DRONABINOL 2.5 MG CAP PO SCH ×2 (06:32→17:14)
[2019-06-11] MEDS ORDERED: PANTOPRAZOLE 40 MG TABLET PO SCH (09:00)
[2019-06-11] MEDS: IPRATROPIUM-ALBUTEROL 3 ML NEB INHALATION SCH ×3 (09:17→20:42)
[2019-06-11 09:33] LABS: Basophils # (A) 0.1 k/uL (0-0.2); Basophils % (A) 1 %; Eosinophils # (A) 0.3 k/uL (0-0.7); Eosinophils % (A) 6 %; HCT 30.3 % (34.0-46.0); HGB 9.2 gm/dL (11.4-16.0); Hypochromasia Marked; Lymphocytes # (A) 1.1 k/uL (1.0-4.8); Lymphocytes % (A) 24 %; MCH 28.4 pg (25.0-35.0); MCHC 30.3 g/dL (31.0-37.0); MCV 93.6 fL (80.0-100.0); Mean Platelet Volume 7.3; Monocytes # (A) 0.3 k/uL (0-1.0); Monocytes % (A) 6 %; Neutrophils # (A) 2.7 k/uL (1.3-7.7); Neutrophils % (A) 60 %; Platelet Count 204 k/uL (150-450); RBC 3.24 m/uL (3.80-5.40); RDW 15.8 % (11.5-15.5); WBC 4.4 k/uL (3.8-10.6)
[2019-06-11] MEDS: ENOXAPARIN 40 MG/0.4 ML SYRINGE SQ SCH (09:40)
[2019-06-11] MEDS: CLOPIDOGREL 75 MG TAB PO SCH (09:40)
[2019-06-11] MEDS: DOCUSATE 100 MG CAP PO SCH (09:40)
[2019-06-11] MEDS: SERTRALINE 100 MG TAB PO SCH (09:41)
[2019-06-11] MEDS: SENNOSIDES-DOCUSATE SODIUM 1 EACH TAB PO SCH (09:41)
[2019-06-11] MEDS: CHOLESTYRAMINE (WITH SUGAR) 4 GM PACKET PO SCH (09:43)
[2019-06-11 09:46] LABS: African American GFR (CKD) >90 (>60 ml/min/1.73 sqM); Anion Gap 6 mmol/L; Blood Urea Nitrogen <2 mg/dL (7-17); Carbon Dioxide 26 mmol/L (22-30); Chloride 107 mmol/L (98-107); Glucose 85 mg/dL (74-99); Magnesium 1.4 mg/dL (1.6-2.3); Non-African American GFR(CKD) >90 (>60 ml/min/1.73 sqM); Potassium 4.1 mmol/L (3.5-5.1); Sodium 139 mmol/L (137-145)
[2019-06-11] MEDS ORDERED: Magnesium Replacement Protocol 1 EACH MISC MISCELLANE PRN (11:11)
--- NOTE | 2019-06-11 11:24 | P.DS ---
Providers Date of admission: 06/05/19 19:47 Expected date of discharge: 06/11/19 Attending physician: Gerald Pearl MD Consults: 06/06/19 09:20 Consult Physician Routine Consulting Provider: Garry Osullivan Consult Reason/Comments: bacteremia Do you want consulting provider notified?: Yes 06/06/19 14:41 Consult Physician Routine Consulting Provider: Rigo Martin Consult Reason/Comments: abd pain, ?colitis Do you want consulting provider notified?: Yes Primary care physician: [facility] Course: (1) Severe sepsis secondary to acute colitis, treating as C. difficile colitis though stool for C. diff reported negative , significant clinical improvement on vancomycin ( PICC line infection less likely-culture reporting no growth) Current Visit: Yes Status: Acute Code(s): A41.9 - SEPSIS, UNSPECIFIED ORGANISM; R65.20 - SEVERE SEPSIS WITHOUT SEPTIC SHOCK SNOMED Code(s): 87263107 (2) Moderate recurrent major depression Current Visit: Yes Status: Acute Code(s): F33.1 - MAJOR DEPRESSIVE DISORDER, RECURRENT, MODERATE SNOMED Code(s): 115856087 (3) Rheumatoid arthritis Current Visit: Yes Status: Acute Code(s): M06.9 - RHEUMATOID ARTHRITIS, UNSPECIFIED SNOMED Code(s): 59680915 (4) Chronic pain Current Visit: Yes Status: Acute Code(s): G89.29 - OTHER CHRONIC PAIN SNOMED Code(s): 52140138 (5) Colitis Current Visit: Yes Status: Acute Code(s): K52.9 - NONINFECTIVE GASTROENTERITIS AND COLITIS, UNSPECIFIED SNOMED Code(s): 29410741 (6) Fever Current Visit: Yes Status: Acute Code(s): R50.9 - FEVER, UNSPECIFIED SNOMED Code(s): 482737072 (7) THC use (8) hypomagnesemia, severe (9) depression (10) COPD (11) anorexia, BMI 20.1 Hospital course:Patient is a 63-year-old female with PMH of rheumatoid arthritis, depression who was recently admitted for right hand abscess and discharged with PICC and 4-week course of cefazolin. Pt initially did well and had followed with ID on Tuesday with no noted complications. Tuesday pt developed chills, malaise, as well as watery diarrhea. Pt also complaining of cramping severe abdominal pain. In the ED, her vitals were stable, WBC 24k, cr at baseline. With concern for possible PICC infection, her PICC was removed and tip cultured. Patient was started on vancomycin and Zosyn. CT abd/pelvis completed and consistent with colitis. 06/07/2019 complaining of constipation, abdominal pain. States difficulty sleeping. Maintained on IV vancomycin, blood cultures reporting no growth at 24 hours, PICC line catheter tip reporting no growth at 24 hours. Stool for C. difficile negative. T-max 103.9, WBC trending down currently 18.4. Evaluated by surgery, recommending clear liquid diet/bowel rest. Denies chest pain, palpitations or increased shortness of breath. 06/08/2019 depressed, crying, discussing prior multiple emotional traumas. Clinically doing better today, no abdominal pain, up in chair, positive bowel movement last night.. Positive nausea, Denies vomiting. Afebrile, WBC within normal limits. Catheter tip culture reporting no growth. Potassium 3.5. Significant clinical improvement. Currently receiving magnesium supplementation. Patient will be discharged home in a stable condition with guarded prognosis pending infectious disease final DC recommendations/clearance. Recommending subacute rehab but patient declining, states that she will have 24 /7 care at all times in her home. - Exam General: Alert and oriented 3, no acute distress Lungs: normal respiratory effort, CV: Regular rate and rhythm, no murmur. No edema Abdomen: soft. Nondistended, Nontender.Positive bowel sounds Neuro: no focal deficits. The impression and plan of care has been dictated as directed. : I performed a history and examination of this patient, discussed the same with the dictator. I agree with the dictator's note ,documented as a scribe. Any additional findings or plans will be noted. Patient Condition at Discharge: Stable Plan - Discharge Summary Discharge Rx Participant: No New Discharge Prescriptions: New Cholestyramine (with Sugar) [Questran Packet] 4 gm PO BID@1000,2100 #14 packet Sennosides-Docusate Sodium [Senokot-S] 2 each PO BID #20 tab Vancomycin Oral Solution 250 mg PO Q6HR #160 ml Continue predniSONE 17.5 mg PO DAILY Sodium Chloride 5% Ophth Oint [Carlos 128] 1 applic BOTH EYES HS Estradiol [Estrace] 1 mg PO DAILY Clopidogrel [Plavix] 75 mg PO DAILY traZODone HCL [Desyrel] 200 mg PO HS Potassium Chloride [Klor-Con 10] 10 meq PO DAILY traZODone HCL 100 mg PO DAILY ceFAZolin [Kefzol] 2 gm IVP Q8HR #84 vial fentaNYL 100MCG/HR PATCH [Duragesic 100MCG/HR] 1 patch TRANSDERM Q72H #1 patch Ondansetron [Zofran] 4 mg PO Q6H PRN PRN Reason: Nausea And Vomiting HYDROcodone/APAP 10-325MG [[place] 10-325] 1 tab PO Q6H PRN PRN Reason: Pain Acetaminophen [Tylenol] 650 mg PO Q6H PRN PRN Reason: Fever And/ Or Pain S.boulardii/B.coagulans/Fos [Diff-Stat 471 mg Capsule] 942 mg PO BID Famotidine 20 mg PO HS Phenergan Im Raiza 25mg/Ml 25 mg IM Q8H PRN PRN Reason: Nausea And Vomiting Discontinued Loperamide [Imodium] 2 mg PO Q2H PRN MDD 4 CAPS/24HRS PRN Reason: Loose Stool Discharge Medication List Clopidogrel [Plavix] 75 mg PO DAILY 05/12/19 [History] Estradiol [Estrace] 1 mg PO DAILY 05/12/19 [History] Potassium Chloride [Klor-Con 10] 10 meq PO DAILY 05/12/19 [History] Sodium Chloride 5% Ophth Oint [Carlos 128] 1 applic BOTH EYES HS 05/12/19 [History] predniSONE 17.5 mg PO DAILY 05/12/19 [History] traZODone HCL 100 mg PO DAILY 05/12/19 [History] traZODone HCL [Desyrel] 200 mg PO HS 05/12/19 [History] ceFAZolin [Kefzol] 2 gm IVP Q8HR #84 vial 05/17/19 [Rx] fentaNYL 100MCG/HR PATCH [Duragesic 100MCG/HR] 1 patch TRANSDERM Q72H #1 patch 05/18/19 [Rx] Acetaminophen [Tylenol] 650 mg PO Q6H PRN 06/05/19 [History] Famotidine 20 mg PO HS 06/05/19 [History] HYDROcodone/APAP 10-325MG [[place] 10-325] 1 tab PO Q6H PRN 06/05/19 [History] Ondansetron [Zofran] 4 mg PO Q6H PRN 06/05/19 [History] Phenergan Im Raiza 25mg/Ml 25 mg IM Q8H PRN 06/05/19 [History] S.boulardii/B.coagulans/Fos [Diff-Stat 471 mg Capsule] 942 mg PO BID 06/05/19 [History] Cholestyramine (with Sugar) [Questran Packet] 4 gm PO BID@1000,2100 #14 packet 06/11/19 [Rx] Sennosides-Docusate Sodium [Senokot-S] 2 each PO BID #20 tab 06/11/19 [Rx] Vancomycin Oral Solution 250 mg PO Q6HR #160 ml 06/11/19 [Rx] Follow up Appointment(s)/Referral(s): [facility] Vis[facility] Nurse, [NON-STAFF] - Rigo Martin MD [STAFF PHYSICIAN] - 1 Week Ju Mcnair MD [Primary Care Provider] - 3 Days Ambulatory/Diagnostic Orders: Complete Blood Count w/diff [LAB.AMB] Time Frame: 3 Days, Location: None Selected Activity/Diet/Wound Care/Special Instructions: Pending Magnesium replacement, normal levels. Pending ID clearance.Declining sub acute rehab., states will have someone with her 13/12, including her son.
[2019-06-11] MEDS: MAGNESIUM SULFATE-D5W PMX 1 GM in DEXTROSE/WATER 1 100ML.BAG IVPB SCH ×3 (12:48→16:44)
[2019-06-11 15:50] VITALS: TEMP 98.6
[2019-06-11] MEDS: 0.9% NACL WITH KCL 20 MEQ/L 1,000 ML IV SCH (17:08)
--- NOTE | 2019-06-11 17:32 | PN ---
PROGRESS NOTE DATE OF SERVICE: 06/11/2019 REASON FOR FOLLOWUP: Colitis, likely C difficile. INTERVAL HISTORY: The patient is currently afebrile. She has been breathing comfortably. The patient's diarrhea has slightly decreased in frequency. Denies any chest pain or cough. No nausea or vomiting. PHYSICAL EXAMINATION: Blood pressure is 131/84 with a pulse of 77, temperature 97.1. She is 91% on room air. General description is a middle-aged female lying in bed in no distress. RESPIRATORY SYSTEM: Unlabored breathing. Clear to auscultation anteriorly. HEART: S1, S2. Regular rate and rhythm. ABDOMEN: Soft. No tenderness. LABS: Hemoglobin 9.1, white count 4.4, BUN of 2, creatinine 0.54. Blood and catheter cultures have been negative. DIAGNOSTIC IMPRESSION AND PLAN: 1. Patient admitted to hospital with a fever with concern for possible PICC line infection. However, that has been negative with negative tip culture and blood cultures. 2. Right hand cellulitis and previous MSSA infection, adequately treated. 3. Colitis, likely infectious; responded to the vancomycin. Recommend finishing therapy with a 10-day course of oral vancomycin and close outpatient followup. MMODL / IJN: [id number] /
[2019-06-11 19:58] VITALS: BP 179/93; PULSE 86; RESP 17
== END 2019-06-11 21:00 | disposition home health service (06) | DRG 872 ==
LOC: EC 19:34 → 4SSUR 19:47
PROVIDERS: ADMIT Family Medicine; ATTEND Family Medicine
DX: A41.89 Other specified sepsis (principal); A04.72 Enterocolitis due to Clostridium difficile, not specified as recurrent; F33.1 Major depressive disorder, recurrent, moderate; J98.11 Atelectasis; R65.20 Severe sepsis without septic shock; D64.9 Anemia, unspecified; E83.42 Hypomagnesemia; E87.6 Hypokalemia; F41.9 Anxiety disorder, unspecified; G89.29 Other chronic pain; H54.7 Unspecified visual loss; J44.9 Chronic obstructive pulmonary disease, unspecified; K59.00 Constipation, unspecified; M08.00 Unspecified juvenile rheumatoid arthritis of unspecified site; R32 Unspecified urinary incontinence; R63.0 Anorexia; Z68.20 Body mass index [BMI] 20.0-20.9, adult; Z79.02 Long term (current) use of antithrombotics/antiplatelets; Z79.890 Hormone replacement therapy; Z79.52 Long term (current) use of systemic steroids; Z79.899 Other long term (current) drug therapy; Z88.1 Allergy status to other antibiotic agents; Z87.891 Personal history of nicotine dependence; Z86.19 Personal history of other infectious and parasitic diseases; Z91.19 Patient's noncompliance with other medical treatment and regimen; Z82.49 Family history of ischemic heart disease and other diseases of the circulatory system
CPT/HCPCS: 71045; 74176; 80048; 80202; 83605; 83735; 83880; 84132; 85025; 87040; 87070; 87324; 87502; 93005; 94640; 94760; 99285

== ENCOUNTER → 2019-07-16 | Outpatient (CLI) | payer MEDICARE ==
[2019-07-16 13:15] LABS: Anisocytosis Slight; HCT 30.6 % (34.0-46.0); HGB 9.4 gm/dL (11.4-16.0); Hypochromasia Moderate; MCH 29.6 pg (25.0-35.0); MCHC 30.9 g/dL (31.0-37.0); MCV 95.9 fL (80.0-100.0); Platelet Count 198 k/uL (150-450); RBC 3.19 m/uL (3.80-5.40); RDW 16.8 % (11.5-15.5); WBC 8.6 k/uL (3.8-10.6)
[2019-07-16 13:21] LABS: Appearance,Urine Clear (Clear); Bacteria,Urine Rare /hpf; Bilirubin,Urine Negative (Negative); Blood,Urine Negative (Negative); Color,Urine Yellow; Glucose,Urine (UA) Negative (Negative); Hyaline Casts,Urine 1 /lpf (0-2); Ketones,Urine Negative (Negative); Leukocyte Esterase,Urine Trace (Negative); Mucus,Urine Rare /hpf; Nitrite,Urine Negative (Negative); PH, Urine 6.5 (5.0-8.0); Protein,Urine Negative (Negative); RBC,Urine <1 /hpf (0-5); Specific Gravity,Urine 1.029 (1.001-1.035); Squamous Epithelial Cell,Urine 5 /hpf (0-4); WBC,Urine 2 /hpf (0-5)
[2019-07-16 13:25] LABS: ALT 11 U/L (4-34); AST 17 U/L (14-36); African American GFR (CKD) >90 (>60 ml/min/1.73 sqM); Albumin 3.6 g/dL (3.5-5.0); Alkaline Phosphatase 76 U/L (38-126); Anion Gap 6 mmol/L; Blood Urea Nitrogen 22 mg/dL (7-17); Carbon Dioxide 32 mmol/L (22-30); Chloride 102 mmol/L (98-107); Glucose 87 mg/dL (74-99); Non-African American GFR(CKD) 80 (>60 ml/min/1.73 sqM); Potassium 3.9 mmol/L (3.5-5.1); Sodium 140 mmol/L (137-145); Total Bilirubin 0.4 mg/dL (0.2-1.3); Total Protein 6.5 g/dL (6.3-8.2)
[2019-07-16 13:27] LABS: INR 0.9 (<1.2); Partial Thromboplastin Time 23.2 sec (22.0-30.0); Prothrombin Time 9.5 sec (9.0-12.0)
== END | disposition home or self-care (01) ==
LOC: LABPAT 12:13
PROVIDERS: ATTEND Orthopaedic Surgery
DX: Z01.812 Encounter for preprocedural laboratory examination (principal); M17.12 Unilateral primary osteoarthritis, left knee
CPT/HCPCS: 36415; 80053; 81001; 82728; 85027; 85610; 85730; 87070

== ENCOUNTER → 2019-10-19 | Outpatient (CLI) | payer MEDICARE ==
[2019-10-19 12:28] LABS: INR 0.9 (<1.2); Partial Thromboplastin Time 23.3 sec (22.0-30.0); Prothrombin Time 9.7 sec (9.0-12.0)
[2019-10-19 12:41] LABS: HCT 46.6 % (34.0-46.0); HGB 14.7 gm/dL (11.4-16.0); Hypochromasia Slight; MCH 31.2 pg (25.0-35.0); MCHC 31.5 g/dL (31.0-37.0); MCV 99.2 fL (80.0-100.0); Macrocytosis Slight; Mean Platelet Volume 7.3; Platelet Count 161 k/uL (150-450); RDW 15.6 % (11.5-15.5); WBC 10.6 k/uL (3.8-10.6)
[2019-10-19 12:44] LABS: Albumin 3.9 g/dL (3.5-5.0); Calcium 9.1 mg/dL (8.4-10.2); Potassium 3.7 mmol/L (3.5-5.1); Total Bilirubin 0.3 mg/dL (0.2-1.3); Total Protein 6.5 g/dL (6.3-8.2)
[2019-10-19 13:48] LABS: Appearance,Urine Turbid (Clear); Bacteria,Urine Rare /hpf; Bilirubin,Urine Negative (Negative); Blood,Urine Negative (Negative); Calcium Oxalate Crystals,Urine Occasional /hpf; Color,Urine Yellow; Glucose,Urine (UA) Negative (Negative); Hyaline Casts,Urine 1 /lpf (0-2); Ketones,Urine Negative (Negative); Leukocyte Esterase,Urine Negative (Negative); Mucus,Urine Rare /hpf; Nitrite,Urine Negative (Negative); PH, Urine 5.5 (5.0-8.0); Protein,Urine Trace (Negative); RBC,Urine 2 /hpf (0-5); Specific Gravity,Urine 1.033 (1.001-1.035); Squamous Epithelial Cell,Urine 16 /hpf (0-4); Urobilinogen,Urine <2.0 mg/dL (<2.0); WBC,Urine 3 /hpf (0-5)
== END | disposition home or self-care (01) ==
LOC: LABPAT 11:16
PROVIDERS: ATTEND Orthopaedic Surgery
DX: Z01.818 Encounter for other preprocedural examination (principal); Z01.812 Encounter for preprocedural laboratory examination; U07.1 COVID-19
CPT/HCPCS: 80053; 85027; 85610; 85730; 81001; 87070; U0003

== ENCOUNTER 2019-10-22 12:30 | Inpatient (IN) | payer MEDICARE ==
[2019-10-18 10:20] VITALS: BMI 20.7
[~2019-10-22 12:30] MED LIST: ACETAMINOPHEN TAB 500 MG TAB PO ONE; DEXAMETHASONE SOD PHOSPHATE 10 MG/ML 1 ML VIAL IV ONE; GABAPENTIN 300 MG CAP PO ONE; MELOXICAM 7.5 MG TAB PO ONE; MIDAZOLAM 2 MG/2 ML VIAL IV PRN; ONDANSETRON 4 MG/2 ML VIAL IVP ONE; TRANEXAMIC ACID 1,000 MG in SODIUM CHLORIDE 0.9% 100 ML IVPB ONE
[2019-10-22] MEDS: LACTATED RINGERS 1,000 ML IV SCH ×3 (13:51→20:51)
[2019-10-22 13:56] LABS: Glucose,Whole Blood 86 mg/dL (75-99)
[2019-10-22] MEDS ORDERED: HYDROCORTISONE SUCCINATE 100 MG/2 ML VIAL IV ONE (14:00)
[2019-10-22] MEDS ORDERED: fentaNYL (PF) 50 MCG/ML 2 ML AMP IV ONE (14:10)
[2019-10-22] MEDS ORDERED: ROPIVACAINE 0.2%-NS ON-Q PUMP 1,090 MG, EMPTY PAIN BALL 1 EACH MISCELLANE PRN (14:30)
--- NOTE | 2019-10-22 14:30 | P.ANPRN ---
Procedure Note - Anesthesia - Nerve Block Performed Left Adductor Canal Infusion Time Out Performed: Yes Date of Procedure: 10/22/19 Procedure Start Time: 14:09 Procedure Stop Time: 14:26 Location of Patient: PreOp Indication: Requested by Surgeon Specifically requested for management of pain by DrTe: Gallito Munson Sedation Type: Sedate with meaningful contact maintained Preparation: Sterile Prep, Sterile Dressing Position: Supine Catheter: Indwelling Needle Types: Pajunk Needle Gauge: 21 Ultrasound used to visualize needle placement: Yes Ultrasound used to observe medication spread: Yes Injectate: 0.5% Ropivacaine (see comment for volume) (20 ml) Blood Aspirated: No Pain Paresthesia on Injection Noted: No Resistance on Injection: Normal Image Stored and Saved: Yes Events: Uneventful and Well Tolerated
[2019-10-22] MEDS ORDERED: NA PHOS,M-B/NA PHOS,DI-BA 133 ML ENEMA RECTAL PRN (14:57)
[2019-10-22] MEDS ORDERED: traMADol 50 MG TAB PO PRN (14:57)
[2019-10-22] MEDS ORDERED: DIAZEPAM 5 MG TAB PO PRN (14:57)
[2019-10-22] MEDS ORDERED: BISACODYL 10 MG SUPP RECTAL PRN (14:57)
[2019-10-22] MEDS ORDERED: ONDANSETRON 4 MG/2 ML VIAL IVP PRN (14:57)
[2019-10-22] MEDS ORDERED: NALOXONE 0.4 MG/ML 1 ML VIAL IV PRN (14:57)
[2019-10-22] MEDS ORDERED: MAGNESIUM HYDROXIDE 2,400 MG/10 ML CUP PO PRN (14:57)
[2019-10-22] MEDS ORDERED: ACETAMINOPHEN TAB 325 MG TAB PO PRN (14:57)
[2019-10-22] MEDS ORDERED: HYDROmorphone 0.5 MG/0.5 ML SYRINGE IVP PRN ×2 (14:57)
[2019-10-22] MEDS ORDERED: HYDROcodone/APAP 10-325MG 1 EACH TAB PO PRN (14:57)
[2019-10-22] MEDS ORDERED: HYDROmorphone 1 MG/ML 1 ML SYRINGE IVP PRN (14:57)
[2019-10-22] MEDS ORDERED: MIDAZOLAM 2 MG/2 ML VIAL ONE (15:30)
[2019-10-22] MEDS ORDERED: LIDOCAINE 1% INJ 10MG/ML (20 ML MDV) ONE (15:30)
[2019-10-22] MEDS ORDERED: fentaNYL (PF) 50 MCG/ML 2 ML AMP ONE (15:30)
[2019-10-22] MEDS ORDERED: ROCURONIUM BROMIDE 10 MG/ML 5 ML VIAL IV ONE (15:30)
[2019-10-22] MEDS ORDERED: PROPOFOL 10 MG/ML 20 ML VIAL IV ONE (15:30)
[2019-10-22] MEDS: ROPIVACAINE 246.25 MG, EPINEPHrine 0.5 MG, KETOROLAC 30 MG, cloNIDine HCL/PF 80 MCG, WA... MISCELLANE ONE ×10 (16:19→16:40)
[2019-10-22] MEDS ORDERED: ceFAZolin 3,000 MG in SODIUM CHLORIDE 0.9% IRRIGATIO 3,000 ML IRRIGATION ONE (16:20)
--- NOTE | 2019-10-22 17:20 | P.OP ---
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 Postoperative Diagnosis: Failed left total knee arthroplasty Procedure(s) Performed: Revision left total knee arthroplasty Implants: [employer] Legion Oxinium constrained femoral component size 3, left [employer] Legion press-fit stem, straight 10 mm x 120 mm [employer] legion revision tibial baseplate size 1, left [employer] Legion offset microbiological laboratory technician, 6 mm [employer] Legion press-fit stem, straight 10 mm x 120 mm [employer] Analia II constrained articular insert size 1-2, 9 mm All components were cemented using Simplex P bone cement with Tobramycin. The articulation is Oxinium on polyethylene. Anesthesia: spinal Surgeon: Gallito Munson [employer] Bi Developer #1: Conrad Krishnamurthy Estimated Blood Loss (ml): 25 Pathology: other (Cultures 2) Condition: stable Disposition: PACU Indications for Procedure: This is a 64-year-old female who presented the office with pain in her left knee. She is had a left total knee arthroplasty performed in 1990 and is been declining in function over time. After failing conservative treatment we discussed the surgical nonsurgical treatment options with her at length and she wishes to proceed with a revision of her left total knee arthroplasty. Covid-19 was also discussed at length with the patient, and they are aware of the current policies and procedures. The patient was given the option of delaying surgery, but they elect to proceed knowing these risks. Patient is aware of all these complications and informed consent was obtained Operative Findings: The operative findings are consistent with a failed left total knee arthroplasty Description of Procedure: Patient was seen in the preoperative area consent was reviewed and operative site was marked with a skin marker. An adductor canal pain catheter was placed by anesthesia in the preoperative area. Patient was then brought to the operating room and given preoperative antibiotics intravenously. A spinal anesthetic was administered by the anesthesia department. A tourniquet was placed on the upper thigh and the lower extremity was prepped and draped in usual sterile fashion. A gram of transexamic acid was given. A universal timeout was then performed which confirmed the patient's name, surgical site, ALLERGIES, and consent. The lower extremity was then exsanguinated and tourniquet was inflated to 250 mmHg. A standard and anterior midline approach to the knee was performed. The skin and subcutaneous tissue was dissected down to the patellar tendon, with the prior scar being excised. A medial parapatellar arthrotomy was then performed. A moderate amount of clear fluid was encountered, and this was cultured 2. The knee was then extended, the patellar was everted, and the knee was again flexed. The components were then inspected and grossly were found to be well fixed. The tibial poly-was then removed without incident. Attention was directed to the femur. Using a small oscillating saw, the implant cement interface was disrupted, and the femoral component was easily removed with an osteotome and a mallet. There was minimal bone loss encountered. Attention was then directed to the tibia. Again using a small oscillating saw, the implant bone interface was disrupted. The tibial component was an easily removed with an osteotome and a mallet. There was very little bone loss from the tibia. Attention was redirected to the femur. Sequential reaming of the femoral canal was performed until good cortical fit at 10 mm. The distal cutting guide was then placed over the reamer the distal femur cut was performed. Next the 4-in-1 cutting block was placed over the reamer and the appropriate cuts were performed. The cutting block and reamer were then removed and the femoral trial was placed. The bone was then removed for the box. Femoral trial was then removed. Attention was then redirected to the tibia. Sequential reaming of the tibial canal was performed until good cortical fit at 10 mm. The intramedullary proximal tibial cutting guide was then placed over the reamer, the proximal tibia was cut. The tibia was sized and it was determined that an offset stem should be used. Proximal tibia was then prepared for the offset stem next the patella was then prepared as well. Trials were then placed with a 9 mm constrained liner. The knee was able to fully extend and flex to 115 and was stable throughout all range of motion. Trials were then removed. The cut surfaces of bone were then irrigated with pulsatile lavage. The posterior structures were injected with the ropivacaine solution. The knee was also irrigated with Irrisept solution. The components were then opened, the cement was mixed, and the components were then cemented in place. The cement was allowed to harden with the knee in full extension. While the cement was hardening, the remaining soft tissues were then injected with a ropivacaine solution, which consisted of 246.25 mg of ropivacaine, 0.5 mg of epinephrine, 30 mg of Toradol, 80 g of clonidine, and 48.45 mL of sterile water, for a total of 100 mL of fluid injected. After the cemented hardened. The tourniquet was released, and hemostasis was obtained. A second gram of transexamic acid was given. The knee was again irrigated. The knee was again taken through range of motion and found to be stable throughout all range of motion of 0-130, and the patella tracked normally. The fascia was then closed with #2 strata fix suture. The subcutaneous tissue was closed with 3-0 Vicryl and 3-0 strata fix. Dermabond glue was used for the skin and placed with the knee in flexion. The patient was placed in a sterile silver dressing. Patient was then transferred to recovery room in stable condition. The assistant professor of business ANG Guillory was required due the complexity surgery and the need for a skilled surgical endoscopist. She assisted in positioning, draping, retraction, and closure of the wound.
[2019-10-22] MEDS ORDERED: SODIUM CHLORIDE 0.9% 1,000 ML IV ONE (17:34)
[2019-10-22] MEDS: HYDROmorphone 0.5 MG/0.5 ML SYRINGE IVP PRN ×5 (18:06→18:45)
--- NOTE | 2019-10-22 18:33 | XR ---
EXAMINATION TYPE: XR knee limited LT DATE OF EXAM: 10/22/2019 COMPARISON: NONE HISTORY: 64-year-old female evaluation for postoperative abnormality in alignment TECHNIQUE: 2 views FINDINGS: Images show placement of revision left total knee arthroplasty with stemmed femoral and tibial compon ents. Alignment grossly anatomic. No periprosthetic fracture. Soft tissue air related to recent opera tion along with intra-articular air in joint fluid. IMPRESSION: Uncomplicated postoperative appearance of the revision left total knee arthroplasty with stemmed comp onents.
[2019-10-22] MEDS: HYDROcodone/APAP 10-325MG 1 EACH TAB PO PRN (19:40)
[2019-10-22] MEDS ORDERED: TEMAZEPAM 15 MG CAP PO PRN (21:00)
[2019-10-22] MEDS ORDERED: SENNOSIDES-DOCUSATE SODIUM 1 EACH TAB PO SCH (21:00)
[2019-10-23] MEDS: LACTATED RINGERS 1,000 ML IV SCH ×2 (04:51→07:48)
[2019-10-23] MEDS: HYDROcodone/APAP 10-325MG 1 EACH TAB PO PRN ×2 (06:55→11:44)
[2019-10-23 07:10] LABS: Basophils % (A) 0 %; Eosinophils # (A) 0.1 k/uL (0-0.7); Eosinophils % (A) 1 %; HCT 36.7 % (34.0-46.0); Hypochromasia Slight; Lymphocytes # (A) 1.3 k/uL (1.0-4.8); Lymphocytes % (A) 12 %; MCH 31.6 pg (25.0-35.0); MCHC 31.4 g/dL (31.0-37.0); MCV 100.7 fL (80.0-100.0); Macrocytosis Slight; Mean Platelet Volume 7.3; Monocytes # (A) 0.6 k/uL (0-1.0); Monocytes % (A) 5 %; Neutrophils # (A) 8.6 k/uL (1.3-7.7); Neutrophils % (A) 81 %; Platelet Count 134 k/uL (150-450); RBC 3.64 m/uL (3.80-5.40); RDW 15.7 % (11.5-15.5); WBC 10.7 k/uL (3.8-10.6)
[2019-10-23 07:13] LABS: HGB 11.5 gm/dL (11.4-16.0)
[2019-10-23 07:50] VITALS: BP 126/81; PULSE 86; RESP 16; TEMP 98.8
[2019-10-23] MEDS ORDERED: PANTOPRAZOLE 40 MG TABLET PO SCH (09:30)
--- NOTE | 2019-10-23 10:46 | P.DS ---
Providers Date of admission: 10/22/19 12:50 Expected date of discharge: 10/23/19 Attending physician: Gallito Munson Consults: 10/22/19 14:57 Consult Physician Routine Consulting Provider: Gerald Pearl Consult Reason/Comments: post op medical management Do you want consulting provider notified?: Yes Primary care physician: Ju Mcnair - Discharge Diagnosis(es) (1) Status post total left knee replacement Patient was admitted to the OR on 10/22/2019 to undergo a revision left total knee arthroplasty. She had failed conservative measures as an outpatient and de sired to proceed with elective surgery after given informed consent. She underwent the above procedure which she tolerated well without complication. Postoperative hospital course has remained without complication. On day of discharge she is afebrile, vital signs stable, labs within acceptable ranges, tolerating by mouth meds and diet, voiding without difficulty, positive flatus, denies abdominal pain or calf pain, pain is controlled on oral pain medication and has no new complaints. Wound is benign, neurovascular status is intact, calf is soft and nontender, abdomen soft and nontender. Review of systems is negative for numbness, tingling, fever, chills, chest pain, shortness of breath, nausea, vomiting, dizziness, headaches, slurred speech or other Current Visit: Yes Status: Acute Priority: Medium Procedures: Revision Left TKA Patient Condition at Discharge: Good Plan - Discharge Summary Discharge Rx Participant: No New Discharge Prescriptions: New HYDROcodone/APAP 10-325MG [Lillie 10-325] 1 tab PO Q4HR PRN #42 tab PRN Reason: Pain No Action predniSONE 17.5 mg PO DAILY Estradiol [Estrace] 1 mg PO DAILY Clopidogrel [Plavix] 75 mg PO DAILY traZODone HCL [Desyrel] 200 mg PO HS fentaNYL 100MCG/HR PATCH [Duragesic 100MCG/HR] 1 patch TRANSDERM Q72H #1 patch Ondansetron [Zofran] 4 mg PO Q6H PRN PRN Reason: Nausea And Vomiting HYDROcodone/APAP 10-325MG [[place]illie 10-325] 1 tab PO BID PRN PRN Reason: Pain Vilazodone HCl [Viibryd] 40 mg PO DAILY Zoloft (Unknown Dose) 1 tab PO DAILY Omeprazole (Unknown Dose) 1 tab PO DAILY Iron (Unknown Dose) 1 tab PO DAILY Calcium (Unknown Dose) 1 dose PO DAILY Discharge Medication List Clopidogrel [Plavix] 75 mg PO DAILY 05/12/19 [History] Estradiol [Estrace] 1 mg PO DAILY 05/12/19 [History] predniSONE 17.5 mg PO DAILY 05/12/19 [History] traZODone HCL [Desyrel] 200 mg PO HS 05/12/19 [History] fentaNYL 100MCG/HR PATCH [Duragesic 100MCG/HR] 1 patch TRANSDERM Q72H #1 patch 05/18/19 [Rx] HYDROcodone/APAP 10-325MG [[place]illie 10-325] 1 tab PO BID PRN 06/05/19 [History] Ondansetron [Zofran] 4 mg PO Q6H PRN 06/05/19 [History] Calcium (Unknown Dose) 1 dose PO DAILY 10/18/19 [History] Iron (Unknown Dose) 1 tab PO DAILY 10/18/19 [History] Omeprazole (Unknown Dose) 1 tab PO DAILY 10/18/19 [History] Vilazodone HCl [Viibryd] 40 mg PO DAILY 10/18/19 [History] Zoloft (Unknown Dose) 1 tab PO DAILY 10/18/19 [History] HYDROcodone/APAP 10-325MG [Lillie 10-325] 1 tab PO Q4HR PRN #42 tab 10/23/19 [Rx] Follow up Appointment(s)/Referral(s): Gallito Munson DO [Doctor of Osteopathic Medicine] - 11/07/19 1:20 pm [facility] Visiting Nurse, [NON-STAFF] - Activity/Diet/Wound Care/Special Instructions: Keep wound clean and dry Take meds as directed Follow-up with Dr. Munson in office Weight bear as tolerated May shower in 3 days if no bleeding Discharge Disposition: HOME WITH HOME HEALTH SERVICES
[2019-10-23] MEDS ORDERED: traZODone HCL 100 MG TAB PO SCH (21:00)
--- NOTE | 2019-10-23 22:49 | P.CONS ---
History of Present Illness - Reason for Consult Consult date: 10/23/19 - Chief Complaint Knee pain - History of Present Illness Meg Mccray is a 64 yo F with PMH of rheumatoid arthritis, OA, GERD who is admitted for scheduled L TKA. She is POD#1, reports heartburn this morning but otherwise is feeling well. Her L knee pain is controlled. She denies fever, chills, chest pain or shortness of breath. Review of Systems All systems: negative Constitutional: Denies chills, Denies fever Eyes: denies blurred vision, denies pain Ears, nose, mouth and throat: Denies headache, Denies sore throat Cardiovascular: Denies chest pain, Denies shortness of breath Respiratory: Denies cough Gastrointestinal: Reports heartburn, Denies abdominal pain, Denies diarrhea, Denies nausea, Denies vomiting Genitourinary: Denies dysuria, Denies hematuria Musculoskeletal: Denies myalgias Integumentary: Denies pruritus, Denies rash Neurological: Denies numbness, Denies weakness Psychiatric: Denies anxiety, Denies depression Endocrine: Denies fatigue, Denies weight change Past Medical History Past Medical History: GERD/Reflux, Osteoarthritis (OA), Rheumatoid Arthritis (RA) Additional Past Medical History / Comment(s): blind, juvenile RA, past hx htn, hx of "collapsed discs" in her back and has been in a wheel chair since- arthritis pain in hips., able to stand and take some steps., anemic off & on., ayaz syndrome (inflamatory disorder) History of Any Multi-Drug Resistant Organisms: None Reported Past Surgical History: Section, Joint Replacement, Orthopedic Surgery Additional Past Surgical History / Comment(s): mulitple joint surgeries- as a child wrist & knees drained, feet straightened at 18 yrs old, [facility] Total Knees, right wrist fused, 2 c-sections, cataracts and retina eye surgery Past Anesthesia/Blood Transfusion Reactions: No Reported Reaction Past Psychological History: Anxiety, Depression Smoking Status: Former smoker Past Alcohol Use History: Rare Additional Past Alcohol Use History / Comment(s): QUIT SMOKING 10 YRS AGO, SMOKED 1 PPD, SMOKED OFF & ON SINCE 20 YRS OLD. Past Drug Use History: Marijuana Additional Drug Use History / Comment(s): medical marijuana - states she eats candy bars. - Past Family History Father Family Medical History: No Reported History Additional Family Medical History / Comment(s): ETOH Mother Family Medical History: No Reported History Medications and Allergies Home Medications Medication Instructions Recorded Confirmed Type Clopidogrel [Plavix] 75 mg PO DAILY 05/12/19 10/22/19 History Estradiol [Estrace] 1 mg PO DAILY 05/12/19 10/22/19 History predniSONE 17.5 mg PO DAILY 05/12/19 10/22/19 History traZODone HCL [Desyrel] 200 mg PO HS 05/12/19 10/22/19 History fentaNYL 100MCG/HR PATCH 1 patch TRANSDERM Q72H #1 patch 05/18/19 10/22/19 Rx [Duragesic 100MCG/HR] HYDROcodone/APAP 10-325MG [[place] 1 tab PO BID PRN 06/05/19 10/22/19 History 10-325] Ondansetron [Zofran] 4 mg PO Q6H PRN 06/05/19 10/22/19 History Calcium (Unknown Dose) 1 dose PO DAILY 10/18/19 10/22/19 History Iron (Unknown Dose) 1 tab PO DAILY 10/18/19 10/22/19 History Omeprazole (Unknown Dose) 1 tab PO DAILY 10/18/19 10/22/19 History Vilazodone HCl [Viibryd] 40 mg PO DAILY 10/18/19 10/22/19 History Zoloft (Unknown Dose) 1 tab PO DAILY 10/18/19 10/22/19 History HYDROcodone/APAP 10-325MG [[place] 1 tab PO Q4HR PRN #42 tab 10/23/19 Rx 10-325] Allergies Allergy/AdvReac Type Severity Reaction Status Date / Time ibuprofen AdvReac severe Verified 10/18/19 09:28 gastritis Physical Exam Vitals: Vital Signs Temp Pulse Resp BP Pulse Ox 10/23/19 07:15 16 10/23/19 06:54 98.8 F 86 16 126/81 97 10/23/19 01:10 98.2 F 90 12 103/70 97 Intake and Output 10/23/19 10/23/19 10/23/19 06:59 14:59 22:59 Other: Voiding Method Bedpan # Voids 1 General: well nourished, well developed, NAD. Vitals reviewed Eyes: PERRL, EOMI, conjunctiva normal HENT: normocephalic, mucus membranes moist Neck: supple, no JVD Lungs: normal respiratory effort, no wheezes or rales CV: Regular rate and rhythm, no murmur. Peripheral pulses 2+ Abdomen: soft, nondistended, no organomegaly Lymph: no cervical or axillary LAD Skin: warm and dry. Neuro: A&Ox3, normal mood and affect Results CBC & Chem 7: 10/23/19 06:45 Labs: Abnormal Lab Results - Last 24 Hours (Table) 10/23/19 Range/Units 06:45 WBC 10.7 H (3.8-10.6) k/uL RBC 3.64 L (3.80-5.40) m/uL MCV 100.7 H (80.0-100.0) fL RDW 15.7 H (11.5-15.5) % Plt Count 134 L (150-450) k/uL Neutrophils # 8.6 H (1.3-7.7) k/uL Microbiology - Last 24 Hours (Table) 10/22/19 16:02 Gram Stain - Preliminary Knee - Left Wound Culture - Preliminary 10/22/19 16:02 Gram Stain - Preliminary Knee - Left Wound Culture - Preliminary 10/22/19 16:02 Anaerobic Culture - Preliminary Knee - Right 10/22/19 16:02 Anaerobic Culture - Preliminary Knee - Left Assessment and Plan (1) GERD (gastroesophageal reflux disease) Status: Acute Code(s): K21.9 - GASTRO-ESOPHAGEAL REFLUX DISEASE WITHOUT ESOPHAGITIS SNOMED Code(s): 565573472 (2) Rheumatoid arthritis Status: Acute Code(s): M06.9 - RHEUMATOID ARTHRITIS, UNSPECIFIED SNOMED Code(s): 42040718 (3) Moderate recurrent major depression Status: Acute Code(s): F33.1 - MAJOR DEPRESSIVE DISORDER, RECURRENT, MODERATE SNOMED Code(s): 847979012 (4) Rheumatoid arthritis Status: Acute Code(s): M06.9 - RHEUMATOID ARTHRITIS, UNSPECIFIED SNOMED Code(s): 03979316 (5) Status post total left knee replacement Status: Acute Priority: Medium Code(s): Z96.652 - PRESENCE OF LEFT ARTIFICIAL KNEE JOINT SNOMED Code(s): 8472619953159 Plan: 1. S/p L TKA. Management per Ortho, she is medically stable for discharge 2. RA. Resume her home prednisone 3. GERD. Cont protonix 4. Major depression. Continue zoloft and trazodone DVT prophylaxis, resume ASA and plavix tomorrow
[2019-10-24] MEDS ORDERED: Vilazodone Hcl [Viibryd] 40 MG PO SCH (09:00)
[2019-10-24] MEDS ORDERED: MULTIVITAMINS, THERA 1 EACH TAB PO SCH (12:00)
== END 2019-10-23 12:08 | disposition home health service (06) | DRG 467 ==
LOC: EDSTATUS 12:30 → 2ORMAIN 12:50 → 4SSUR 17:38
PROVIDERS: ADMIT Orthopaedic Surgery; ATTEND Orthopaedic Surgery
PROC: 0SRD069 Replacement of Left Knee Joint with Oxidized Zirconium on Polyethylene Synthetic Substitute, Cemented, Open Approach (ICD-10-PCS; principal; 2019-10-22 14:45)
PROC: 0SPD0JZ Removal of Synthetic Substitute from Left Knee Joint, Open Approach (ICD-10-PCS; principal; 2019-10-22 14:45)
DX: T84.033A Mechanical loosening of internal left knee prosthetic joint, initial encounter (principal); F33.1 Major depressive disorder, recurrent, moderate; M04.8 Other autoinflammatory syndromes; J44.9 Chronic obstructive pulmonary disease, unspecified; M06.9 Rheumatoid arthritis, unspecified; I10 Essential (primary) hypertension; I34.0 Nonrheumatic mitral (valve) insufficiency; H54.7 Unspecified visual loss; K21.0 Gastro-esophageal reflux disease with esophagitis; Z87.891 Personal history of nicotine dependence; Z96.651 Presence of right artificial knee joint; Z98.890 Other specified postprocedural states; Z98.891 History of uterine scar from previous surgery; Z98.42 Cataract extraction status, left eye; Z98.41 Cataract extraction status, right eye; Z81.1 Family history of alcohol abuse and dependence; Z79.02 Long term (current) use of antithrombotics/antiplatelets; Z79.890 Hormone replacement therapy; Z79.891 Long term (current) use of opiate analgesic; Z79.52 Long term (current) use of systemic steroids; Z79.899 Other long term (current) drug therapy; Z86.2 Personal history of diseases of the blood and blood-forming organs and certain disorders involving the immune mechanism; Y83.1 Surgical operation with implant of artificial internal device as the cause of abnormal reaction of the patient, or of later complication, without mention of misadventure at the time of the procedure
CPT/HCPCS: 64448; 76942; 85025; 87070; 87075; 87205